=== PATIENT | female | born 1940 | race Caucasian/White ===

== ENCOUNTER 2016-06-01 09:53 | Inpatient (IN) | payer MEDICARE, OTHER ==
[2016-06-01] VITALS (13 sets, daily range): BP systolic 72–159; BP diastolic 40–83; PULSE 56–72; RESP 16; TEMP 99; O2SAT 90–99
[~2016-06-01] VITALS: Ht 162.6 cm; Wt 62.0 kg
[2016-06-01] MEDS: LACTATED RINGER'S 1000 ML INJ 1,000 ML IV SCH
[2016-06-01] MEDS: levETIRAcetam 500 MG TAB PO SCH (00:45)
[2016-06-01] MEDS: PHENYTOIN SODIUM 100 MG CAP PO SCH (00:45)
[2016-06-01] MEDS: ATORVASTATIN 40 MG TAB PO SCH (00:45)
[2016-06-01] MEDS: MIRTAZAPINE 15 MG TAB PO SCH (00:45)
[~2016-06-01 09:53] MED LIST: AMLO10TA2 PO; ARTI1DRO EACH EYE; ATOR40TA16 PO; BISA10SU3 RECTAL; CALTTAB6 PO; CARV3.125 PO; CLON.1 PO; DILA100C PO; FENT12DI T-DERMAL; FERR1TAB36 PO; FLEEENE3 PR; FLEEENE3 RECTAL; HYDR-3801 PO; HYDR25TA5 PO; ISOS30TA15 PO; KEPP750T PO; LEVEMIR SQ; MAALSUS PO; MILKSUS PO; MIRA50TA PO; NOVOLOGP2 SQ; PLAV75TA29 PO; PRIN20TA2 PO; PROC10003 SQ; PROT40TA PO; TACT325T PO
[2016-06-01] MEDS ORDERED: SODIUM CHLOR 0.9% 1000 ML INJ 1,000 ML IV ONE (10:15)
[2016-06-01] MEDS ORDERED: SODIUM CHLORIDE 0.9% FLUSH 5 ML FLUSH IVF PRN ×2 (10:15→23:00)
[2016-06-01 10:45] LABS: BLOOD, URINE NEG (NEG); COMMENT (UR) CULT NOT INDICATED; CULTURE IF INDICATED CULT NOT INDICATED; GLUCOSE,URINE NEG (NEG); KETONE, URINE NEG (NEG); MUCUS URINE FEW /lpf (OCC); NITRITE,URINE NEG (NEG); PH, URINE 5.5 (5.0-8.5); SQUAMOUS EPITHELIAL CELL URINE <1 /hpf (0-5); URINE COLOR YELLOW (YELLW/STRAW)
[2016-06-01 10:47] LABS: AUTOMATED NEUTROPHIL # 7.6 TH/MM3 (1.8-7.7); BASOPHIL % 0.1 % (0.0-2.0); HEMATOCRIT 30.8 % (35.0-46.0); HEMO FLAGS DIFF FINAL; LYMPH % 3.8 % (9.0-44.0); LYMPHOCYTE # 0.3 TH/MM3 (1.0-4.8); MEAN CELL VOLUME 94.5 FL (80.0-100.0); MEAN CORPUSCULAR HEMOGLOBIN 32.5 PG (27.0-34.0); MEAN CORPUSCULAR HGB CONC 34.4 % (32.0-36.0); MONO % 7.3 % (0.0-8.0); NEUT % 88.8 % (16.0-70.0); PLATELET COUNT 215 TH/MM3 (150-450); RED BLOOD COUNT 3.25 MIL/MM3 (4.00-5.30); RED CELL DISTRIBUTION WIDTH 14.5 % (11.6-17.2); WHITE BLOOD COUNT 8.6 TH/MM3 (4.0-11.0)
[2016-06-01 10:53] LABS: APTT (PATIENT) 26.6 SEC (24.3-30.1); PROTHROMBIN TIME - PATIENT 10.7 SEC (9.8-11.6)
[2016-06-01] MEDS ORDERED: PROPOFOL 200 MG/20 ML AMP IV ONE (10:54)
[2016-06-01] MEDS ORDERED: ePHEDrine/NS 50 MG/5 ML SYR IV ONE (10:54)
[2016-06-01] MEDS ORDERED: ONDANSETRON HCL 4 MG/2 ML VIAL IV PUSH ONE (10:54)
--- NOTE | 2016-06-01 10:55 | PD ---
HPI Chief Complaint: Hip Injury Time Seen by Provider: 10:07 Travel History International Travel<30 days: No Contact w/Intl Traveler<30days: No Traveled to known affect area: No History of Present Illness HPI 75-year-old female was sent from the longterm for a fall and left hip injury. They had done an x-ray because she had leg shortening and pain which showed hip fracture. Patient is complaining of left-sided hip pain. She is awake and answering questions appropriately. She is not sure how she fell and is not sure if she hit her head. Patient is on Plavix. Upon arrival her blood pressure was in 80s systolic. She did not appear to be in any severe pain. She did not receive any pain medication en route. [facility] Past Medical History Narrative Medical List of her past medical history is reviewed from the nursing note. Anemia: Yes Arthritis: Yes Asthma: No Autoimmune Disease: No Anxiety: Yes Depression: No Heart Rhythm Problems: No Cancer: No Cardiac Catheterization: Yes Cardiovascular Problems: Yes (HTN) High Cholesterol: No Chemotherapy: No Chest Pain: No Congestive Heart Failure: No COPD: No Cerebrovascular Accident: Yes (patient says a while ago, doesnt remember) Diabetes: Yes Patient Takes Glucophage: No Diminished Hearing: No Endocrine: Yes GERD: No Genitourinary: No Hiatal Hernia: No Hypertension: Yes Immune Disorder: No Kidney Stones: No Musculoskeletal: Yes Neurologic: Yes Psychiatric: Yes Reproductive: No Respiratory: No Immunizations Current: Yes Migraines: No Radiation Therapy: No Renal Failure: No Seizures: Yes Sickle Cell Disease: No Sleep Apnea: No Thyroid Disease: No Ulcer: No Tetanus Vaccination: < 5 Years Influenza Vaccination: Yes Past Surgical History Abdominal Surgery: No AICD: No Arteriovenous Shunt: No Cardiac Surgery: No Ear Surgery: No Endocrine Surgery: No Eye Surgery: No Genitourinary Surgery: No Gynecologic Surgery: No Insulin Pump: No Joint Replacement: No Oral Surgery: No Pacemaker: No Thoracic Surgery: No Tonsillectomy: Yes Social History Alcohol Use: No Tobacco Use: No Substance Use: No Allergies-Medications (Allergen,Severity, Reaction): Coded Allergies: No Known Allergies (Verified , 06/01/16) Comments No known drug allergies. Reported Meds & Prescriptions Reported Meds & Active Scripts Active Reported Mirtazapine 15 Mg Tab 15 Mg PO HS Furosemide 20 Mg Tab 20 Mg PO DAILY Escitalopram (Escitalopram Oxalate) 20 Mg Tab 20 Mg PO DAILY Humalog Inj (Insulin Human Lispro) 1,000 Unit/10 Ml Vial 1-9 Units SQ ACHS Max dose at bedtime:( )units; sugars< 70,(0)units; sugars 150-199,(1)unit; sugars 200-249,(3)units; sugars 250-299,(5)units; sugars 300-349,(7)units; sugars more than 349,(9)units. Fleet Enema Rectal (Sodium Phosphates Rectal) 7-19 Gm/118 Ml Enem 1 Each RECTAL DIRECTED PRN If no results from Dulcolax within 48hrs Bisacodyl Supp (Bisacodyl) 10 Mg Supp 10 Mg RECTAL DAILY PRN If no results from MOM Maalox Max Liq (Gqbpdtuj-Bkjymhgfy-Raupewotzar Liq) 400-400-40 Mg/5 Ml Susp 30 Ml PO Q4HR PRN Take between meals or as directed. Shake well. Maximum 60 ml/24 hrs. Milk of Magnesia Liq (Magnesium Hydroxide) 400 Mg/5 Ml Susp 30 Ml PO Q4HR PRN Fentanyl Patch 72 HR (Fentanyl) 12 Mcg/Hr Patch 1 Patch T-DERMAL Q72H Remove old patch when new one placed. Soothe Xp/Xtra Protection (Artificial Tear Solution) 1 Hansel Hansel 1 Drop EACH EYE TID Procrit Inj (Epoetin Asael) 10,000 Unit/Ml Inj 5,000 Units SQ WEEKLY Hold if HGB over 11. Myrbetriq (Mirabegron) 50 Mg Tab 50 Mg PO HS Plavix (Clopidogrel Bisulfate) 75 Mg Tab 75 Mg PO DAILY Tactinal (Acetaminophen) 325 Mg Tab 650 Mg PO Q4HR PRN Keppra (Levetiracetam) 750 Mg Tab 1,500 Mg PO BID Iron (Ferrous Sulfate) 325 Mg Tab 325 Mg PO TID Dilantin (Phenytoin Extended) 100 Mg Cap 200 Mg PO HS Levemir Inj (Insulin Detemir) 1,000 unit/ 10 ML Vial 8 Units SQ HS Do not mix with any other Insulin. Prinivil (Lisinopril) 20 Mg Tab 40 Mg PO DAILY Isosorbide Dinitrate 30 Mg Tab 60 Mg PO BID Hydrochlorothiazide 25 Mg Tab 25 Mg PO DAILY Hydralazine (Hydralazine HCl) 100 Mg Tab 100 Mg PO TID Take with meals Catapres (Clonidine) 0.1 Mg Tab 0.1 Mg PO BID Coreg (Carvedilol) 3.125 Mg Tab 3.125 Mg PO BID Caltrate 600+D Plus Warrick 600-800 mg-Unit (Calcium Carbonate-Vitamin D W/) 1 Tab Tab 1 Tab PO TID Atorvastatin (Atorvastatin Calcium) 40 Mg Tab 40 Mg PO HS Amlodipine (Amlodipine Besylate) 10 Mg Tab 10 Mg PO DAILY Protonix (Pantoprazole Sodium) 40 Mg Tab 40 Mg PO DAILY Narrative Medication List of her home medications reviewed from the nursing note. 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 HEAD: Atraumatic. Normocephalic. EYES: Pupils equal and round. No scleral icterus. No injection or drainage. ENT: No nasal bleeding or discharge. Mucous membranes pink and moist. NECK: Trachea midline. No JVD. CARDIOVASCULAR: Regular rate and rhythm. No murmur appreciated. RESPIRATORY: No accessory muscle use. Clear to auscultation. Breath sounds equal bilaterally. GASTROINTESTINAL: Abdomen soft, non-tender, nondistended. Hepatic and splenic margins not palpable. MUSCULOSKELETAL: Right leg length shortening and decreased range of motion due to pain. No clubbing. No cyanosis. No edema. Distal neurovascular intact NEUROLOGICAL: Awake and alert. No obvious cranial nerve deficits. Motor grossly within normal limits. Normal speech. PSYCHIATRIC: Appropriate mood and affect; insight and judgment normal. Data Data Last Documented VS Vital Signs Date Time Temp Pulse Resp B/P Pulse Ox O2 Delivery O2 Flow Rate FiO2 06/01/16 12:00 98 Nasal Cannula 3 06/01/16 11:20 68 16 108/52 06/01/16 09:53 99.0 Orders Electrocardiogram (06/01/16 10:08) Complete Blood Count With Diff (06/01/16 10:08) Comprehensive Metabolic Panel (06/01/16 10:08) Prothrombin Time / Inr (Pt) (06/01/16 10:08) Act Partial Throm Time (Ptt) (06/01/16 10:08) Urinalysis - C+S If Indicated (06/01/16 10:08) Type And Screen (06/01/16 10:08) Hip, Uni(Ap&Lat) W Ap Pelvis (06/01/16 10:08) Iv Access Insert/Monitor (06/01/16 10:08) Oximetry (06/01/16 10:08) Ecg Monitoring (06/01/16 10:08) Sodium Chloride 0.9% Flush (Ns Flush) (06/01/16 10:15) Ct Brain W/O Iv Contrast(Rout) (06/01/16 ) Sodium Chlor 0.9% 1000 Ml Inj (Ns 1000 M (06/01/16 10:15) Urinary Catheter Insert/Apply (06/01/16 10:08) Chest, Single Ap (06/01/16 ) Consult Orthopedic (06/01/16 ) NPO (06/01/16 11:45) Admit Order (Ed Use Only) (06/01/16 11:57) Labs Laboratory Tests Test 06/01/16 10:25 White Blood Count 8.6 TH/MM3 Red Blood Count 3.25 MIL/MM3 Hemoglobin 10.6 GM/DL Hematocrit 30.8 % Mean Corpuscular Volume 94.5 FL Mean Corpuscular Hemoglobin 32.5 PG Mean Corpuscular Hemoglobin 34.4 % Concent Red Cell Distribution Width 14.5 % Platelet Count 215 TH/MM3 Mean Platelet Volume 8.6 FL Neutrophils (%) (Auto) 88.8 % Lymphocytes (%) (Auto) 3.8 % Monocytes (%) (Auto) 7.3 % Eosinophils (%) (Auto) 0.0 % Basophils (%) (Auto) 0.1 % Neutrophils # (Auto) 7.6 TH/MM3 Lymphocytes # (Auto) 0.3 TH/MM3 Monocytes # (Auto) 0.6 TH/MM3 Eosinophils # (Auto) 0.0 TH/MM3 Basophils # (Auto) 0.0 TH/MM3 CBC Comment DIFF FINAL Differential Comment Prothrombin Time 10.7 SEC Prothromb Time International 1.0 RATIO Ratio Activated Partial 26.6 SEC Thromboplast Time Urine Color YELLOW Urine Turbidity CLEAR Urine pH 5.5 Urine Specific [place] 1.023 Urine Protein TRACE mg/dL Urine Glucose (UA) NEG mg/dL Urine Ketones NEG mg/dL Urine Occult Blood NEG Urine Nitrite NEG Urine Bilirubin NEG Urine Urobilinogen LESS THAN 2.0 MG/DL Urine Leukocyte Esterase NEG Urine RBC 1 /hpf Urine WBC 1 /hpf Urine Squamous Epithelial <1 /hpf Cells Urine Mucus FEW /lpf Microscopic Urinalysis Comment CULT NOT INDICATED Sodium Level 140 MEQ/L Potassium Level 4.8 MEQ/L Chloride Level 103 MEQ/L Carbon Dioxide Level 30.1 MEQ/L Anion Gap 7 MEQ/L Blood Urea Nitrogen 38 MG/DL Creatinine 1.17 MG/DL Estimat Glomerular Filtration 45 ML/MIN Rate Random Glucose 266 MG/DL Calcium Level 8.4 MG/DL Total Bilirubin 0.3 MG/DL Aspartate Amino Transf 16 U/L (AST/SGOT) Alanine Aminotransferase 22 U/L (ALT/SGPT) Alkaline Phosphatase 106 U/L Total Protein 5.8 GM/DL Albumin 3.4 GM/DL Blood Type A POSITIVE Antibody Screen NEGATIVE MDM Medical Decision Making Medical Screen Exam Complete: Yes Emergency Medical Condition: Yes Medical Record Reviewed: Yes Interpretation(s) Twelve-lead EKG was reviewed by me. Normal sinus rhythm, normal axis, LVH, left ventricular strain. Heart rate of 68 bpm. Differential Diagnosis Hip fracture, proximal femur fracture Narrative Course 10:54 AM awaiting for the x-ray to be done and resulted. I've ordered a head CT since patient is on Plavix and does not recall if she hit her head when she fell. Awaiting for the chemistry to come back. Patient will require admission. 11:41 AM x-ray is back and cleared shows a comminuted proximal femur fracture. I put a call out for orthopedics as well as the hospitalist for admission. 11:47 AM I spoke with Dr. Dr. Oneill from orthopedics. Patient is nothing by mouth as per his request. Awaiting for the hospitalist to call back. Procedures EKG Prior to Arrival: No Physician Communication Physician Communication Dr. Oneill Diagnosis Primary Impression: Intertrochanteric fracture of left hip Qualified Code: S72.142A - Intertrochanteric fracture of left hip, closed, initial encounter Additional Impression: Hyperglycemia Admitting Information Admitting Physician Requests: Admit Nichelle Nichols MD Jun 01, 2016 10:55
[2016-06-01 10:59] LABS: ALT (GPT) 22 U/L (10-53); ANION GAP 7 MEQ/L (5-15); AST (GOT) 16 U/L (15-37); BICARBONATE 30.1 MEQ/L (21.0-32.0); BLOOD UREA NITROGEN 38 MG/DL (7-18); CHLORIDE 103 MEQ/L (98-107); GLOMERULAR FILTRATION RATE 45 ML/MIN (>89); POTASSIUM 4.8 MEQ/L (3.5-5.1); SODIUM (NA) 140 MEQ/L (136-145)
[2016-06-01 11:01] LABS: ALKALINE PHOSPHATASE 106 U/L (45-117); TOTAL BILIRUBIN ADULT 0.3 MG/DL (0.2-1.0)
--- NOTE | 2016-06-01 11:39 | RADRPT ---
EXAM DATE/TIME: 06/01/2016 11:11 [facility] COMPARISON: No previous studies available for comparison. INDICATIONS : Left hip pain after fall yesterday. MEDICAL HISTORY : Stroke. Seizures. Myocardial infarction. Diabetes. SURGICAL HISTORY : Carotid endarterectomy. Cardiac catheterization ENCOUNTER: Initial ACUITY: 2 days PAIN SCORE: 7/10 LOCATION: Left Hip. FINDINGS: Examination of the left hip was performed with AP Pelvis. Comminuted intratrochanteric fracture of th e left hip in varus angulation. Osseous structures are otherwise intact. Femoral acetabular articulat ion is preserved. Atherosclerotic calcification of the regional vasculature. CONCLUSION: Comminuted intratrochanteric fracture of the left hip. Gary Salamanca MD on June 01, 2016 at 11:35 Board Certified Radiologist. This report was verified electronically.
--- NOTE | 2016-06-01 11:40 | RADRPT ---
EXAM DATE/TIME: 06/01/2016 11:27 [facility] COMPARISON: CHEST SINGLE AP, May 31, 2015, 14:08. INDICATIONS : Cough. MEDICAL HISTORY : Stroke. Seizures. Myocardial infarction. Diabetes SURGICAL HISTORY : Carotid endarterectomy. Cardiac catheterization ENCOUNTER: Initial ACUITY: 2 days PAIN SCORE: 0/10 LOCATION: Bilateral chest FINDINGS: A single view of the chest demonstrates the lungs to be symmetrically aerated without evidence of mas s, infiltrate or effusion. The cardiomediastinal contours are unremarkable. 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 Degenerative spurring the dorsal spine. Otherwise intact. CONCLUSION: 1. No acute cardiopulmonary process to explain current clinical symptoms. 2. Severe degenerative changes in both shoulders with degenerative spurring in the mid dorsal spine. Gary Salamanca MD on June 01, 2016 at 11:38 Board Certified Radiologist. This report was verified electronically.
[2016-06-01] MEDS ORDERED: HUMALOG SQ (11:53)
[2016-06-01] MEDS ORDERED: ESCI20TA PO (11:55)
[2016-06-01] MEDS ORDERED: FURO20TA PO (11:55)
[2016-06-01] MEDS ORDERED: MIRTA15 PO (11:55)
[2016-06-01] MEDS ORDERED: MAGNESIUM HYDROXIDE SUSP 30 ML CUP PO PRN (13:00)
[2016-06-01] MEDS ORDERED: BISACODYL 10 MG SUPP RECTAL PRN (13:00)
[2016-06-01] MEDS ORDERED: GLUCAGON 1 MG/ML VIAL OTHER PRN (13:00)
[2016-06-01] MEDS ORDERED: ALUMINUM/MAGNESIUM/SIMETH 30 ML CUP PO PRN ×2 (13:00→23:00)
[2016-06-01] MEDS ORDERED: DEXT 5%-NACL 0.45% 1000 ML INJ 1,000 ML IV SCH (13:00)
[2016-06-01] MEDS ORDERED: ARTIFICIAL TEARS OPTH SOLN 15 ML BTL EACH EYE SCH (13:00)
[2016-06-01] MEDS ORDERED: DEXTROSE 50% IN WATER 50 ML VIAL(D50) IV PUSH PRN (13:00)
[2016-06-01] MEDS ORDERED: MORPHINE SULFATE 4 MG/ML INJ IV PUSH PRN ×2 (14:15→23:45)
--- NOTE | 2016-06-01 15:34 | HHI.HP ---
HPI Service [facility] Primary Care Physician Jacob Smith Admission Diagnosis hip fracture, hyperglycemia Diagnoses: Chief Complaint: left leg pain (Tracie Parnell) Travel History International Travel<30 Days: No Contact w/Intl Traveler <30 Da: No Traveled to Known Affected Are: No (Tracie Parnell) History of Present Illness This is a pleasant 75-year-old female patient with a past medical history which includes carotid stenosis, diabetes mellitus insulin-dependent, hypertension CVA 2012, seizure, anxiety, CAD with VT, hyperlipidemia, compression fracture of L3, duodenal AVM, GRAHAM, GIB due to AVM. Was last admitted 02/2016 for severe anemia secondary to GIB, had EGD and clipping of AVMs. Pt. was sent from a local intermediate after she had a fall and had a left hip injury. It is not clear as to the mechanics of the fall, patient does not recall falling, she is a poor historian. Per ER report, an x-ray was completed at the facility as they noted left leg shortening and pain. X-ray showed hip fracture. Patient was brought to the hospital for further evaluation. On initial presentation, patient was noted with blood pressure of 80 systolic, there was no reported fever, no chest pain, shortness of breath. She had not received any pain medication per EMS. Patient is on Coreg, clonidine, hydralazine, hydrochlorothiazide, lisinopril. Laboratory workup completed was essentially unremarkable, H&H was stable, hemoglobin of 10.6 hematocrit 30.8. BMP remarkable for mild renal insufficiency, creatinine 1.17. Glucose was elevated , 266. UA completed without any evidence of infection. Chest x-ray did not show any infiltrates. CT of the head was negative. Hip and pelvis x-ray showed comminuted intertrochanteric fracture left hip. Last Impressions Hip and Pelvis X-Ray 06/01/16 1008 Signed Impressions: Service Date/Time: Wednesday, June 01, 2016 11:11 - CONCLUSION: Comminuted intratrochanteric fracture of the left hip. Gary Salamanca MD Chest X-Ray 06/01/16 0000 Signed Impressions: Service Date/Time: Wednesday, June 01, 2016 11:27 - CONCLUSION: 1. No acute cardiopulmonary process to explain current clinical symptoms. 2. Severe degenerative changes in both shoulders with degenerative spurring in the mid dorsal spine. MD Dr. Mai Marie was consulted from the emergency room, he requested patient be kept nothing by mouth. Patient received 1 L of IV fluid. Most recent blood pressure is 141/83, heart rate 57. Patient has no complaints, wants to use the bedpan. Pain only with movement of left leg. Patient is admitted for further evaluation and treatment. (Tracie Parnell) Review of Systems ROS Limitations: Poor Historian Musculoskeletal: COMPLAINS OF: Joint pain (Tracie Parnell) Past Family Social History Past Medical History Carotid stenosis, diabetes mellitus insulin-dependent, hypertension CVA 2012, seizure, anxiety, CAD with VT, hyperlipidemia, compression fracture of L3, duodenal AVM, anemia Admitted with GIB, anemia, AVM, had IV Venofer and PRBCC, had EGD Recent capsule endoscopy admitted 02/2016 with severe anemia, GIB, had EGD with AVM clipping Past Surgical History EGD/colonoscopy, right carotid endarterectomy, right femoral artery surgery, cataract surgery, repair of duodenal AVM EGD with AVM cautery duodenum 06/02/2015 EGD with AVM clipping 02/2016 Reported Medications Reported Meds & Active Scripts Active Reported Mirtazapine 15 Mg Tab 15 Mg PO HS Furosemide 20 Mg Tab 20 Mg PO DAILY Escitalopram (Escitalopram Oxalate) 20 Mg Tab 20 Mg PO DAILY Humalog Inj (Insulin Human Lispro) 1,000 Unit/10 Ml Vial 1-9 Units SQ ACHS Max dose at bedtime:( )units; sugars< 70,(0)units; sugars 150-199,(1)unit; sugars 200-249,(3)units; sugars 250-299,(5)units; sugars 300-349,(7)units; sugars more than 349,(9)units. Fleet Enema Rectal (Sodium Phosphates Rectal) 7-19 Gm/118 Ml Enem 1 Each RECTAL DIRECTED PRN If no results from Dulcolax within 48hrs Bisacodyl Supp (Bisacodyl) 10 Mg Supp 10 Mg RECTAL DAILY PRN If no results from MOM Maalox Max Liq (Dgfuqqfa-Dttufqnju-Xgdokwmfkmt Liq) 400-400-40 Mg/5 Ml Susp 30 Ml PO Q4HR PRN Take between meals or as directed. Shake well. Maximum 60 ml/24 hrs. Milk of Magnesia Liq (Magnesium Hydroxide) 400 Mg/5 Ml Susp 30 Ml PO Q4HR PRN Fentanyl Patch 72 HR (Fentanyl) 12 Mcg/Hr Patch 1 Patch T-DERMAL Q72H Remove old patch when new one placed. Soothe Xp/Xtra Protection (Artificial Tear Solution) 1 Hansel Hansel 1 Drop EACH EYE TID Procrit Inj (Epoetin Asael) 10,000 Unit/Ml Inj 5,000 Units SQ WEEKLY Hold if HGB over 11. Myrbetriq (Mirabegron) 50 Mg Tab 50 Mg PO HS Plavix (Clopidogrel Bisulfate) 75 Mg Tab 75 Mg PO DAILY Tactinal (Acetaminophen) 325 Mg Tab 650 Mg PO Q4HR PRN Keppra (Levetiracetam) 750 Mg Tab 1,500 Mg PO BID Iron (Ferrous Sulfate) 325 Mg Tab 325 Mg PO TID Dilantin (Phenytoin Extended) 100 Mg Cap 200 Mg PO HS Levemir Inj (Insulin Detemir) 1,000 unit/ 10 ML Vial 8 Units SQ HS Do not mix with any other Insulin. Prinivil (Lisinopril) 20 Mg Tab 40 Mg PO DAILY Isosorbide Dinitrate 30 Mg Tab 60 Mg PO BID Hydrochlorothiazide 25 Mg Tab 25 Mg PO DAILY Hydralazine (Hydralazine HCl) 100 Mg Tab 100 Mg PO TID Take with meals Catapres (Clonidine) 0.1 Mg Tab 0.1 Mg PO BID Coreg (Carvedilol) 3.125 Mg Tab 3.125 Mg PO BID Caltrate 600+D Plus Milk Vendor 600-800 mg-Unit (Calcium Carbonate-Vitamin D W/) 1 Tab Tab 1 Tab PO TID Atorvastatin (Atorvastatin Calcium) 40 Mg Tab 40 Mg PO HS Amlodipine (Amlodipine Besylate) 10 Mg Tab 10 Mg PO DAILY Protonix (Pantoprazole Sodium) 40 Mg Tab 40 Mg PO DAILY (Tracie Parnell) Allergies: Coded Allergies: No Known Allergies (Verified , 06/01/16) Active Ordered Medications Inpatient Medications Al Hydrox/Mg Hydrox/Simethicone (Mag-Al Plus Susp Liq) 30 ml Q4HR PRN PO INDIGESTION OR UPSET STOMACH; Start 06/01/16 at 13:00 Artificial Tears (Tears Naturale Opth Soln) 1 drop TID EACH EYE DRYEYE; Start at 18:00 Atorvastatin Calcium (Lipitor) 40 mg HS PO ; Start 06/01/16 at 21:00 Bisacodyl (Dulcolax Supp) 10 mg DAILY PRN RECTAL CONSTIPATION; Start 06/01/16 at 13:00 Carvedilol (Coreg) 3.125 mg BID PO ; Start 06/01/16 at 21:00 Dextrose (D50w (Vial) Inj) 25 ml UNSCH PRN IV PUSH HYPOGLYCEMIA-SEE COMMENTS; Start 06/01/16 at 13:00 Dextrose/Sodium Chloride (D5W-1/2 NS 1000 ml Inj) 1,000 ml @ 100 mls/hr Q10H IV Last administered on 06/01/16t 13:55; Start 06/01/16 at 13:00 Escitalopram Oxalate (Lexapro) 20 mg DAILY PO ; Start 06/02/16 at 09:00 Glucagon (Glucagon Inj) 1 mg UNSCH PRN OTHER HYPOGLYCEMIA-SEE COMMENTS; Start 06/01/16 at 13:00 Insulin Aspart (NovoLOG SUPPLEMENTAL SCALE) 1 ACHS SLIDING SCALE SQ ; Start at 16:00 IV Flush 2 ml 2 ml UNSCH PRN IVF FLUSH AFTER USING IV ACCESS; Start 06/01/16 at 10:15 Levetriacetam (Keppra) 1,500 mg BID PO ; Start 06/01/16 at 21:00 Magnesium Hydroxide (Milk Of Magnesia Liq) 30 ml Q4HR PRN PO CONSTIPATION; Start 06/01/16 at 13:00 Mirtazapine (Remeron) 15 mg HS PO ; Start 06/01/16 at 21:00 Morphine Sulfate (Morphine Inj) 2 mg Q3H PRN IV PUSH pain 5 to 10; Start at 14:15; Status UNV Non-Formulary Medication 60 mg DAILY PO ; Start 06/02/16 at 09:00; Status UNV Non-Formulary Medication 50 mg 50 mg HS PO ; Start 06/01/16 at 21:00; Status UNV Pantoprazole Sodium (Protonix) 40 mg DAILY PO ; Start 06/02/16 at 09:00 Phenytoin (Dilantin) 200 mg HS PO ; Start 06/01/16 at 21:00 Sodium Chloride (NS 1000 ml Inj) 1,000 ml @ 999 mls/hr BOLUS ONCE IV Last administered on 06/01/16t 10:23; Start 06/01/16 at 10:15; Stop 06/01/16 at 11:15 ; Status DC Family History Believes father of a heart attack at unknown age Mother of a CVA unknown age Social History Patient is a resident [facility] Her former boss is her close friend and POA Denies EtOH use Quit tobacco use proximally 7 years ago prior to that was a one pack-a-day smoker since she was a teenager Denies illicit drug use (Tracie Parnell) Physical Exam Vital Signs Vital Signs Date Time Temp Pulse Resp B/P Pulse Ox O2 Delivery O2 Flow Rate FiO2 06/01/16 15:00 57 16 141/83 97 Nasal Cannula 3 06/01/16 14:00 58 16 102/51 97 Nasal Cannula 3 06/01/16 13:40 60 16 88/51 99 Nasal Cannula 3 06/01/16 13:00 56 16 111/52 97 Nasal Cannula 3 06/01/16 12:20 59 16 90/40 98 Nasal Cannula 3 06/01/16 12:09 64 16 76/40 98 Nasal Cannula 3 06/01/16 12:00 98 Nasal Cannula 3 06/01/16 11:20 68 16 108/52 97 Nasal Cannula 4 06/01/16 10:10 67 16 119/58 96 Nasal Cannula 4 06/01/16 10:00 72 16 72/40 96 Nasal Cannula 4 06/01/16 10:00 63 16 96 Nasal Cannula 4 06/01/16 09:55 99 Nasal Cannula 4 06/01/16 09:53 99.0 66 16 88/53 90 Physical Exam GENERAL: This is a well-nourished, well-developed patient, in no apparent distress. SKIN: No rashes, ecchymoses or lesions. Cool and dry. HEAD: Atraumatic. Normocephalic. No temporal or scalp tenderness. EYES: Pupils equal round and reactive. Extraocular motions intact. No scleral icterus. No injection or drainage. ENT: Nose without bleeding, purulent drainage or septal hematoma. Throat without erythema, tonsillar hypertrophy or exudate. Uvula midline. Airway patent. NECK: Trachea midline. No JVD or lymphadenopathy. Supple, nontender, no meningeal signs. CARDIOVASCULAR: Regular rate and rhythm without murmurs, gallops, or rubs. RESPIRATORY: Mild expiratory wheezing Slightly diminished at bases. GASTROINTESTINAL: Abdomen soft, non-tender, nondistended. No hepato-splenomegaly , or palpable masses. No guarding. MUSCULOSKELETAL: Left lower extremity noted with shortening, slightly rotated externally, swelling and tenderness to upper thigh. Intact sensation, left pedal pulse 2+. Other joints without any abnormalities. NEUROLOGICAL: awake, oriented x 2, poor historian. No focal deficits, following commands. Laboratory Laboratory Tests Test 06/01/16 10:25 White Blood Count 8.6 Red Blood Count 3.25 Hemoglobin 10.6 Hematocrit 30.8 Mean Corpuscular Volume 94.5 Mean Corpuscular Hemoglobin 32.5 Mean Corpuscular Hemoglobin 34.4 Concent Red Cell Distribution Width 14.5 Platelet Count 215 Mean Platelet Volume 8.6 Neutrophils (%) (Auto) 88.8 Lymphocytes (%) (Auto) 3.8 Monocytes (%) (Auto) 7.3 Eosinophils (%) (Auto) 0.0 Basophils (%) (Auto) 0.1 Neutrophils # (Auto) 7.6 Lymphocytes # (Auto) 0.3 Monocytes # (Auto) 0.6 Eosinophils # (Auto) 0.0 Basophils # (Auto) 0.0 CBC Comment DIFF FINAL Differential Comment Prothrombin Time 10.7 Prothromb Time International 1.0 Ratio Activated Partial 26.6 Thromboplast Time Urine Color YELLOW Urine Turbidity CLEAR Urine pH 5.5 Urine Specific Collyer 1.023 Urine Protein TRACE Urine Glucose (UA) NEG Urine Ketones NEG Urine Occult Blood NEG Urine Nitrite NEG Urine Bilirubin NEG Urine Urobilinogen LESS THAN 2.0 Urine Leukocyte Esterase NEG Urine RBC 1 Urine WBC 1 Urine Squamous Epithelial <1 Cells Urine Mucus FEW Microscopic Urinalysis Comment CULT NOT INDICATED Sodium Level 140 Potassium Level 4.8 Chloride Level 103 Carbon Dioxide Level 30.1 Anion Gap 7 Blood Urea Nitrogen 38 Creatinine 1.17 Estimat Glomerular Filtration 45 Rate Random Glucose 266 Calcium Level 8.4 Total Bilirubin 0.3 Aspartate Amino Transf 16 (AST/SGOT) Alanine Aminotransferase 22 (ALT/SGPT) Alkaline Phosphatase 106 Total Protein 5.8 Albumin 3.4 Blood Type A POSITIVE Antibody Screen NEGATIVE (Tracie Parnell) Result Diagram: 06/01/16 1025 06/01/16 1025 Imaging Last Impressions Hip and Pelvis X-Ray 06/01/16 1008 Signed Impressions: Service Date/Time: Wednesday, June 01, 2016 11:11 - CONCLUSION: Comminuted intratrochanteric fracture of the left hip. Gary Salamanca MD Chest X-Ray 06/01/16 0000 Signed Impressions: Service Date/Time: Wednesday, June 01, 2016 11:27 - CONCLUSION: 1. No acute cardiopulmonary process to explain current clinical symptoms. 2. Severe degenerative changes in both shoulders with degenerative spurring in the mid dorsal spine. Gary Salamanca MD (Tracie ParnellP) Assessment and Plan Problem List: (1) Intertrochanteric fracture of left hip (2) Hypotension (3) Hyperglycemia (4) Hx of iron deficiency (5) Seizure (6) Diabetes (7) CAD (coronary artery disease) (8) Hx of arteriovenous malformation (AVM) (9) Osteoporosis (10) COPD (chronic obstructive pulmonary disease) Assessment and Plan Admit pt. to Dr. Johnson 75-year-old elderly female admitted from intermediate, had recent fall, brought to the emergency room and was found with common noted proximal left femur fracture. History of osteoporosis. -Orthopedic consultation, Dr. Oneill has been notified -Keep pt. NPO, will be going for surgery today -Pain management -IVF Hypotension, etiology unclear, doesn't appear septic, on multiple medications for blood pressure -IVF 1 liter has been given, keep NS at 75/hr -Monitor BP closely -Hold BP meds for now Anemia, stable H&H. Hx GIB sec. AVM, GRAHAM -monitor HH -Resume by mouth iron COPD, stable -Duonebs PRN DM, II -Accu-Cheks before meals and at bedtime with insulin therapy as needed CAD Continue with home medications Seizure disorder -Seizure precautions -Continue Keppra Home medications reviewed, some initiated as indicated SCDs for DVT prophylaxis Protonix for GI prophylaxis Plan of care has been discussed with the patient, attending and registered nurse. Further management of the patient will be dependent on the hospital course Laboratory data and imaging studies have been reviewed, patient is stable to proceed with surgery. Patient will be monitored closely, she has multiple comorbidities and is at moderate risk for complications. Patient requires inpatient admission for anticipated stay greater than 2 days for left femur fracture. If patient not admitted, she is at risk for complications due to advanced age and comorbidities. Patient at risk for disability, pressure areas, infection. Patient requires admission for surgical repair of left femur fracture, IV narcotics, IV fluids. Anticipated discharge back to intermediate with physical therapy when stable This patient was seen by myself and Dr. Johnson, this H&P is written on his behalf (Tracie Parnell) Assessment and Plan PT is seen & Examined d/w PT & her POA at bedside d/w Tracie mims w above Ortho consult awaited d/w RN will f/u (Tabby Johnson MD) Physician Certification 2 Midnight Certification Type: Admission for Inpatient Services Order for Inpatient Services The services are ordered in accordance with Medicare regulations or non- Medicare payer requirements, as applicable. In the case of services not specified as inpatient-only, they are appropriately provided as inpatient services in accordance with the 2-midnight benchmark. Estimated LOS (days): 2 2 days is the estimated time the patient will need to remain in the hospital, assuming treatment plan goals are met and no additional complications. Post-Hospital Plan: SNF (Tracie Parnell) Problem Qualifiers (1) Intertrochanteric fracture of left hip: Qualified Code: S72.142A - Intertrochanteric fracture of left hip, closed, initial encounter (2) Hypotension: Qualified Code: I95.9 - Hypotension, unspecified hypotension type (3) Diabetes: Qualified Code: E11.8 - Type 2 diabetes mellitus with complication, unspecified detention insulin use status (4) CAD (coronary artery disease): Qualified Code: I25.10 - Coronary artery disease involving [place] coronary artery of [place] heart without angina pectoris (5) COPD (chronic obstructive pulmonary disease): Qualified Code: J44.9 - Chronic obstructive pulmonary disease, unspecified COPD type Tracie Parnell Jun 01, 2016 15:34 Tabby Johnson MD Jun 01, 2016 17:43
--- NOTE | 2016-06-01 15:46 | RADRPT ---
EXAM DATE/TIME: 06/01/2016 14:44 [facility] COMPARISON: CT BRAIN W/O CONTRAST, February 15, 2014, 4:39. INDICATIONS : Fall last night RADIATION DOSE: 44.56 CTDIvol (mGy) MEDICAL HISTORY : Hypertension. Diabetes mellitus type 2. Myocardial infarction. SURGICAL HISTORY : None. ENCOUNTER: Initial ACUITY: 1 day PAIN SCALE: 3/10 LOCATION: cranial TECHNIQUE: Multiple contiguous axial images were obtained of the head. Using automated exposure control and adjustment of the mA and/or kV according to patient size, radiation dose was kept as low as reasonably achievable to obtain optimal diagnostic quality images. FINDINGS: CEREBRUM: The ventricles are normal for age. No evidence of midline shift, mass lesion, hemorrha ge or acute infarction. No extra-axial fluid collections are seen. POSTERIOR FOSSA: The cerebellum and brainstem are intact. The 4th ventricle is midline. The cer ebellopontine angle is unremarkable. EXTRACRANIAL: The visualized portion of the orbits is intact. SKULL: The calvaria is intact. No evidence of skull fracture. CONCLUSION: No evidence of acute infarct, hemorrhage, mass or edema. Intact calvarium. Tony Ren MD on June 01, 2016 at 15:43 Board Certified Radiologist. This report was verified electronically.
[2016-06-01] MEDS: INSULIN ASPART SUPPLEMENTAL SCALE SQ SCH ×2 (16:00→21:00)
[2016-06-01] MEDS ORDERED: RESP: ALBUTEROL 2.5 MG/IPRATROPIUM 0.5 MG NEB (PRN) NEB (16:15)
[2016-06-01] MEDS: ARTIFICIAL TEARS OPTH SOLN 15 ML BTL EACH EYE SCH (18:00)
[2016-06-01] MEDS ORDERED: ceFAZolin 2 GM PREMIX 50 ML IV SCH (19:15)
--- NOTE | 2016-06-01 19:30 | PD.CONS ---
cc: Jeanmarie Oneill MD Left intertrochanteric proximal femur fracture (Cristina Saez) HPI Service Orthopedic Surgeons Consult Requested By ER Staff Reason for Consult Left Intertrochanteric Proximal Femur Fracture Primary Care Physician Unknown Admission Diagnosis hip fracture, hyperglycemia Diagnoses: (1) Intertrochanteric fracture of left femur Diagnosis: Principal (2) Hip fracture (3) Hx of iron deficiency (4) Diabetes (5) COPD (chronic obstructive pulmonary disease) (6) Osteoporosis (7) History of CVA (cerebrovascular accident) (8) Upper GI bleed Chief Complaint: left hip fracture secondary to fall (Cristina Saez) History of Present Illness 75 year old female presented to [facility] today after falling in the group home. She is accompanied by her Power of Water Carter, a long time friend. She admitted to immediate left hip pain after the fall. POA admits to Plavix use, which brings up a history of a questionable GI bleed, history of anemia. Previous to this injury she was wheelchair bound at most times, required walker for transfers. (Cristina Saez) Review of Systems well outlined in medical record (Cristina Saez) Past Family Social History Past Medical History well outlined in medical record, admits to possible GI bleed, history of stroke (Cristina Saez) Allergies: Coded Allergies: No Known Allergies (Verified , 06/01/16) Active Ordered Medications Current Medications Medications (Trade) Dose Ordered Sig/Alessio Route Start Time Stop Time Status Last Admin (NS Flush) 2 ml UNSCH PRN IVF 06/01/16 10:15 (Mag-Al Plus Susp Liq) 30 ml Q4HR PRN PO 06/01/16 13:00 (Lipitor) 40 mg HS PO 06/01/16 21:00 (Dulcolax Supp) 10 mg DAILY PRN RECTAL 06/01/16 13:00 (Coreg) 3.125 mg BID PO 06/01/16 21:00 (Lexapro) 20 mg DAILY PO 06/02/16 09:00 (Keppra) 1,500 mg BID PO 06/01/16 21:00 (Milk Of Magnesia Liq) 30 ml Q4HR PRN PO 06/01/16 13:00 (Remeron) 15 mg HS PO 06/01/16 21:00 (Protonix) 40 mg DAILY PO 06/02/16 09:00 (Dilantin) 200 mg HS PO 06/01/16 21:00 Patient Own Medication PT OWN MED:MYRBETRIQ 50MG PO HS HS PO 06/01/16 21:00 Future Hold (D5W-1/2 NS 1000 ml Inj) 1,000 ml @ 100 mls/hr Q10H IV 06/01/16 13:00 06/01/16 13:55 (D50w (Vial) Inj) 25 ml UNSCH PRN IV PUSH 06/01/16 13:00 (Glucagon Inj) 1 mg UNSCH PRN OTHER 06/01/16 13:00 (Tears Naturale Opth Soln) 1 drop TID EACH EYE 06/01/16 18:00 (Morphine Inj) 2 mg Q3H PRN IV PUSH 06/01/16 14:15 Reported Meds & Active Scripts Active Reported Mirtazapine 15 Mg Tab 15 Mg PO HS Furosemide 20 Mg Tab 20 Mg PO DAILY Escitalopram (Escitalopram Oxalate) 20 Mg Tab 20 Mg PO DAILY Humalog Inj (Insulin Human Lispro) 1,000 Unit/10 Ml Vial 1-9 Units SQ ACHS Max dose at bedtime:( )units; sugars< 70,(0)units; sugars 150-199,(1)unit; sugars 200-249,(3)units; sugars 250-299,(5)units; sugars 300-349,(7)units; sugars more than 349,(9)units. Fleet Enema Rectal (Sodium Phosphates Rectal) 7-19 Gm/118 Ml Enem 1 Each RECTAL DIRECTED PRN If no results from Dulcolax within 48hrs Bisacodyl Supp (Bisacodyl) 10 Mg Supp 10 Mg RECTAL DAILY PRN If no results from MOM Maalox Max Liq (Rrhfocrp-Xrgchnfoe-Zmrvwxgxwrf Liq) 400-400-40 Mg/5 Ml Susp 30 Ml PO Q4HR PRN Take between meals or as directed. Shake well. Maximum 60 ml/24 hrs. Milk of Magnesia Liq (Magnesium Hydroxide) 400 Mg/5 Ml Susp 30 Ml PO Q4HR PRN Fentanyl Patch 72 HR (Fentanyl) 12 Mcg/Hr Patch 1 Patch T-DERMAL Q72H Remove old patch when new one placed. Soothe Xp/Xtra Protection (Artificial Tear Solution) 1 Hansel Hansel 1 Drop EACH EYE TID Procrit Inj (Epoetin Asael) 10,000 Unit/Ml Inj 5,000 Units SQ WEEKLY Hold if HGB over 11. Myrbetriq (Mirabegron) 50 Mg Tab 50 Mg PO HS Plavix (Clopidogrel Bisulfate) 75 Mg Tab 75 Mg PO DAILY Tactinal (Acetaminophen) 325 Mg Tab 650 Mg PO Q4HR PRN Keppra (Levetiracetam) 750 Mg Tab 1,500 Mg PO BID Iron (Ferrous Sulfate) 325 Mg Tab 325 Mg PO TID Dilantin (Phenytoin Extended) 100 Mg Cap 200 Mg PO HS Levemir Inj (Insulin Detemir) 1,000 unit/ 10 ML Vial 8 Units SQ HS Do not mix with any other Insulin. Prinivil (Lisinopril) 20 Mg Tab 40 Mg PO DAILY Isosorbide Dinitrate 30 Mg Tab 60 Mg PO BID Hydrochlorothiazide 25 Mg Tab 25 Mg PO DAILY Hydralazine (Hydralazine HCl) 100 Mg Tab 100 Mg PO TID Take with meals Catapres (Clonidine) 0.1 Mg Tab 0.1 Mg PO BID Coreg (Carvedilol) 3.125 Mg Tab 3.125 Mg PO BID Caltrate 600+D Plus Biola 600-800 mg-Unit (Calcium Carbonate-Vitamin D W/) 1 Tab Tab 1 Tab PO TID Atorvastatin (Atorvastatin Calcium) 40 Mg Tab 40 Mg PO HS Amlodipine (Amlodipine Besylate) 10 Mg Tab 10 Mg PO DAILY Protonix (Pantoprazole Sodium) 40 Mg Tab 40 Mg PO DAILY Family History noncontributory Social History Lives in group home. Denies alcohol, drug use or smoking (Cristina Saez) Physical Exam Vital Signs Vital Signs Date Time Temp Pulse Resp B/P Pulse Ox O2 Delivery O2 Flow Rate FiO2 06/01/16 18:30 58 16 159/70 98 Nasal Cannula 3 06/01/16 16:30 56 16 146/65 97 Nasal Cannula 3 06/01/16 15:00 57 16 141/83 97 Nasal Cannula 3 06/01/16 14:00 58 16 102/51 97 Nasal Cannula 3 06/01/16 13:40 60 16 88/51 99 Nasal Cannula 3 06/01/16 13:00 56 16 111/52 97 Nasal Cannula 3 06/01/16 12:20 59 16 90/40 98 Nasal Cannula 3 06/01/16 12:09 64 16 76/40 98 Nasal Cannula 3 06/01/16 12:00 98 Nasal Cannula 3 06/01/16 11:20 68 16 108/52 97 Nasal Cannula 4 06/01/16 10:10 67 16 119/58 96 Nasal Cannula 4 06/01/16 10:00 72 16 72/40 96 Nasal Cannula 4 06/01/16 10:00 63 16 96 Nasal Cannula 4 06/01/16 09:55 99 Nasal Cannula 4 06/01/16 09:53 99.0 66 16 88/53 90 Physical Exam Left lower extremity externally rotated and shortened. Tender to palpation over left hip, particularly anterior region. 2+ pedal pulses. Good cap refill. Neurovascular intact. Full motion of knee and ankle. Laboratory Laboratory Tests Test 06/01/16 10:25 White Blood Count 8.6 Red Blood Count 3.25 Hemoglobin 10.6 Hematocrit 30.8 Mean Corpuscular Volume 94.5 Mean Corpuscular Hemoglobin 32.5 Mean Corpuscular Hemoglobin 34.4 Concent Red Cell Distribution Width 14.5 Platelet Count 215 Mean Platelet Volume 8.6 Neutrophils (%) (Auto) 88.8 Lymphocytes (%) (Auto) 3.8 Monocytes (%) (Auto) 7.3 Eosinophils (%) (Auto) 0.0 Basophils (%) (Auto) 0.1 Neutrophils # (Auto) 7.6 Lymphocytes # (Auto) 0.3 Monocytes # (Auto) 0.6 Eosinophils # (Auto) 0.0 Basophils # (Auto) 0.0 CBC Comment DIFF FINAL Differential Comment Prothrombin Time 10.7 Prothromb Time International 1.0 Ratio Activated Partial 26.6 Thromboplast Time Urine Color YELLOW Urine Turbidity CLEAR Urine pH 5.5 Urine Specific Kincaid 1.023 Urine Protein TRACE Urine Glucose (UA) NEG Urine Ketones NEG Urine Occult Blood NEG Urine Nitrite NEG Urine Bilirubin NEG Urine Urobilinogen LESS THAN 2.0 Urine Leukocyte Esterase NEG Urine RBC 1 Urine WBC 1 Urine Squamous Epithelial <1 Cells Urine Mucus FEW Microscopic Urinalysis Comment CULT NOT INDICATED Sodium Level 140 Potassium Level 4.8 Chloride Level 103 Carbon Dioxide Level 30.1 Anion Gap 7 Blood Urea Nitrogen 38 Creatinine 1.17 Estimat Glomerular Filtration 45 Rate Random Glucose 266 Calcium Level 8.4 Total Bilirubin 0.3 Aspartate Amino Transf 16 (AST/SGOT) Alanine Aminotransferase 22 (ALT/SGPT) Alkaline Phosphatase 106 Total Protein 5.8 Albumin 3.4 Blood Type A POSITIVE Antibody Screen NEGATIVE (Cristina Saez) Result Diagram: 06/01/16 1025 06/01/16 1025 Imaging Last 48 hours Impressions Hip and Pelvis X-Ray 06/01/16 1008 Signed Impressions: Service Date/Time: Wednesday, June 01, 2016 11:11 - CONCLUSION: Comminuted intratrochanteric fracture of the left hip. Gary Salamanca MD Head CT 06/01/16 0000 Signed Impressions: Service Date/Time: Wednesday, June 01, 2016 14:44 - CONCLUSION: No evidence of acute infarct, hemorrhage, mass or edema. Intact calvarium. Tony Ren MD Chest X-Ray 06/01/16 0000 Signed Impressions: Service Date/Time: Wednesday, June 01, 2016 11:27 - CONCLUSION: 1. No acute cardiopulmonary process to explain current clinical symptoms. 2. Severe degenerative changes in both shoulders with degenerative spurring in the mid dorsal spine. Gary Salamanca MD Course well outlined medical record (Cristina Saez) Assessment & Plan Problem List: (1) Intertrochanteric fracture of left hip (2) COPD (chronic obstructive pulmonary disease) (3) Diabetes (4) Hx of iron deficiency (5) History of CVA (cerebrovascular accident) (6) Severe anemia (7) Upper GI bleed (8) HTN (hypertension) Assessment and Plan The findings were discussed with the patient and Power of [employer] Carter. Recommendations are given for surgical management, to allow for mobilization and pain control. The nature of the planned surgical procedure, the risks, the benefits as well as postoperative expectations have been discussed with the patient and POA in detail. In addition, alternatives of the treatment and risks were discussed. The patient and POA acknowledges full understanding and consents to it. Written by Cristina Saez (Ashley), acting as scribe for Dr. Jeanmarie Oneill on 06/01/16 at 19:29. (Cristina Saez) Assessment and Plan The exam, history, and the medical decision-making described in the above note were completed with the assistance of the mid-level provider. I reviewed and agree with the findings presented. I attest that I had a [id number] encounter with the patient on the same day, and personally performed and documented my assessment and findings in the medical record. (Jeanmarie Oneill MD) Cristina Saez Jun 01, 2016 19:30 Jeanmarie Oneill MD Jun 01, 2016 20:39
[2016-06-01] MEDS ORDERED: GENTAMICIN SULFATE 80 MG/2 ML VIAL ONE (19:33)
[2016-06-01] MEDS ORDERED: MIRABEGRON 50 MG PO SCH (21:00)
[2016-06-01] MEDS: CARVEDILOL 3.125 MG TAB PO SCH (21:00)
--- NOTE | 2016-06-01 22:54 | PD.OP ---
cc: Jeanmarie Oneill MD Operative Report Date of Surgery: Jun 01, 2016 Preoperative Diagnosis: (1) Intertrochanteric fracture of left hip Postoperative Diagnosis: (1) Intertrochanteric fracture of left hip Procedure: Close reduction with trochanteric nail fixation left proximal femur fracture Implants used: Synthes intermediate trochanteric nail Anesthesia: General Surgeon: Jeanmarie Oneill Typesetter Perforator Operator(s): Cristina Saez PA-C (Ashley) The surgical procedure was assisted by my physician's veterinary assistant. Her presence was necessary throughout the case for manipulation and positioning of the surgical extremity. My PA was assisting me throughout the duration of this procedure. The skill set of the physician veterinary assistant was medically necessary to complete this procedure. During the surgical case the surgical supply assistant was working at the back table and the physician veterinary assistant was directly assisting me. Operation and Findings: Indications this 75-year-old wheelchair ambulator fell injuring her left hip. She presented to [facility]. X-rays revealed a displaced intertrochanteric proximal femur fracture. Recommendations are given for internal fixation to allow mobilization and pain control. Procedure and findings: Patient was taken to the operative suite and after undergoing an adequate level of general anesthesia was placed supine on the fracture table. Left lower extremity was positioned in skin traction and the preoperative reduction checked in both the AP and lateral planes with the C- arm. The left hip was then prepped and draped in usual sterile fashion with alcohol and Hibiclens. A 3 cm incision was made extending from the greater trochanter. This was carried down through skin and subcutaneous tense tissue with a knife. Hemostasis was obtained with cautery. The muscular fascia was incised and split longitudinally. An entry point was selected at the tip of the greater trochanter. There was displacement of the greater trochanter. A threaded guidepin was advanced. The position was checked in both the AP and lateral planes with the C-arm. It was subsequently overdrilled. A 10 x 130 intermediate trochanteric nail was then impacted in the place. Utilizing an trocar and an outrigger device an additional incision was made distally. A trocar was placed against the lateral cortex. A threaded guidepin was advanced to the lateral cortex into the femoral neck and seated in the subchondral bone of the femoral head. A measurement was then made. The lateral cortex was overdrilled. A 90 helical blade was then impacted in the place. The locking mechanism was then seated. Utilizing the outrigger device in the same distal incision a trocar was then placed for distal interlocking. The cortices were drilled and the appropriate length locking screw placed. The position of the fracture reduction and placement of the internal fixation were then checked in both the AP and lateral planes with the C-arm. The wounds were then thoroughly irrigated. There were closed in layers utilizing #1 Vicryl suture on the muscular fascia, 0 Vicryl suture on the deep tissue, 2-0 Vicryl suture and the subcutaneous tense tissue and manish on the skin. Sterile dressings were applied the patient was awakened transferred to the hospital bed and taken to the recovery room in stable condition. Estimated blood loss: 150 cc Complications: None Jeanmarie Oneill MD Jun 01, 2016 22:54
[2016-06-01] MEDS ORDERED: ONDANSETRON HCL 4 MG/2 ML VIAL IVP PRN (23:00)
[2016-06-01] MEDS ORDERED: ACETAMINOPHEN 325 MG TAB PO PRN (23:00)
[2016-06-01] MEDS ORDERED: POVIDONE IODINE 10% SOLN 118 ML BOTTLE TOPICAL PRN (23:00)
[2016-06-01] MEDS ORDERED: TEMAZEPAM 15 MG CAP PO PRN (23:00)
[2016-06-01] MEDS ORDERED: Post-op Orders (for Pharmacy) MISC XX ONE (23:00)
[2016-06-01] MEDS ORDERED: BISACODYL 10 MG SUPP PR PRN (23:00)
--- NOTE | 2016-06-01 23:02 | RADRPT ---
EXAM DATE/TIME: 06/01/2016 22:25 [facility] COMPARISON: No previous studies available for comparison. INDICATIONS : ORIF left hip. MEDICAL HISTORY : Stroke. Myocardial infarction. Hypertension. Seizures, Diabetes SURGICAL HISTORY : Carotid endarterectomy. Cardiac catheterization ENCOUNTER: Subsequent ACUITY: 2 days PAIN SCORE: Non-responsive. LOCATION: Left pelvis FINDINGS: The patient is status post open reduction internal fixation of an intertrochanteric fracture on the l eft. Alignment is anatomic. CONCLUSION: Anatomic alignment. Fernando Mccullough MD FACR on June 01, 2016 at 22:49 Board Certified Radiologist. This report was verified electronically.
[2016-06-01] MEDS ORDERED: DO NOT ADM ANY ANTICOAGULANT DRUGS XX PRN (23:30)
[2016-06-01] MEDS ORDERED: *morphine SULFATE 8 MG/ML PERIprocedure ONLY ONE (23:50)
[2016-06-02 04:00] VITALS: BP 130/57; PULSE 88; RESP 20; TEMP 97.6; O2SAT 96
[2016-06-02 05:41] LABS: HEMATOCRIT 25.4 % (35.0-46.0); MEAN CELL VOLUME 95.7 FL (80.0-100.0); MEAN CORPUSCULAR HEMOGLOBIN 32.6 PG (27.0-34.0); MEAN CORPUSCULAR HGB CONC 34.1 % (32.0-36.0); PLATELET COUNT 158 TH/MM3 (150-450); RED BLOOD COUNT 2.65 MIL/MM3 (4.00-5.30); RED CELL DISTRIBUTION WIDTH 14.2 % (11.6-17.2); REVIEW FLAG FINAL; WHITE BLOOD COUNT 6.2 TH/MM3 (4.0-11.0)
[2016-06-02 06:12] LABS: BICARBONATE 25.1 MEQ/L (21.0-32.0); POTASSIUM 4.3 MEQ/L (3.5-5.1)
[2016-06-02] MEDS: INSULIN ASPART SUPPLEMENTAL SCALE SQ SCH ×4 (06:35→20:59)
--- NOTE | 2016-06-02 07:38 | PD.ORT.PN ---
Subjective Post Op Day #: 1 Subjective Remarks Pt laying comfortably in bed, sleeping but arousable, answering questions appropriately at this time. She admits her pain in left hip is controlled well. No other complaints noted. Pt EILEEN is long time friend. Objective Vitals Vital Signs Date Time Temp Pulse Resp B/P Pulse Ox O2 Delivery O2 Flow Rate FiO2 06/02/16 04:00 97.6 88 20 130/57 96 06/02/16 00:00 98.2 65 14 145/63 99 Nasal Cannula 3 06/01/16 23:45 61 16 139/59 99 Nasal Cannula 4 06/01/16 23:30 63 16 96/73 99 Nasal Cannula 4 06/01/16 23:15 74 16 115/72 97 Nasal Cannula 4 06/01/16 23:00 74 14 130/72 95 Simple Mask 8 06/01/16 22:56 98.6 86 14 141/75 92 Simple Mask 8 06/01/16 19:30 57 16 137/63 97 Nasal Cannula 3 06/01/16 18:30 58 16 159/70 98 Nasal Cannula 3 06/01/16 16:30 56 16 146/65 97 Nasal Cannula 3 06/01/16 15:00 57 16 141/83 97 Nasal Cannula 3 06/01/16 14:00 58 16 102/51 97 Nasal Cannula 3 06/01/16 13:40 60 16 88/51 99 Nasal Cannula 3 06/01/16 13:00 56 16 111/52 97 Nasal Cannula 3 06/01/16 12:20 59 16 90/40 98 Nasal Cannula 3 06/01/16 12:09 64 16 76/40 98 Nasal Cannula 3 06/01/16 12:00 98 Nasal Cannula 3 06/01/16 11:20 68 16 108/52 97 Nasal Cannula 4 06/01/16 10:10 67 16 119/58 96 Nasal Cannula 4 06/01/16 10:00 72 16 72/40 96 Nasal Cannula 4 06/01/16 10:00 63 16 96 Nasal Cannula 4 06/01/16 09:55 99 Nasal Cannula 4 06/01/16 09:53 99.0 66 16 88/53 90 I/O 06/01/16 06/01/16 06/01/16 06/02/16 06/02/16 06/02/16 07:00 15:00 23:00 07:00 15:00 23:00 Intake Total 700 ml 948 ml Output Total 825 ml 525 ml Balance -125 ml 423 ml Intake Oral 180 ml IV Total 768 ml Other 700 ml Output Urine Total 525 ml Estimated Blood Loss 125 ml Other 700 ml # Bowel Movements 0 Result Diagram: 06/02/16 0525 06/02/16 0525 Other Results Laboratory Tests Test 06/01/16 10:25 Prothrombin Time 10.7 SEC (9.8-11.6) Prothromb Time International 1.0 RATIO Ratio Imaging Last 48 hours Impressions Hip and Pelvis X-Ray 06/01/16 1008 Signed Impressions: Service Date/Time: Wednesday, June 01, 2016 11:11 - CONCLUSION: Comminuted intratrochanteric fracture of the left hip. Gary Salamanca MD Head CT 06/01/16 0000 Signed Impressions: Service Date/Time: Wednesday, June 01, 2016 14:44 - CONCLUSION: No evidence of acute infarct, hemorrhage, mass or edema. Intact calvarium. Tony Ren MD Chest X-Ray 06/01/16 0000 Signed Impressions: Service Date/Time: Wednesday, June 01, 2016 11:27 - CONCLUSION: 1. No acute cardiopulmonary process to explain current clinical symptoms. 2. Severe degenerative changes in both shoulders with degenerative spurring in the mid dorsal spine. Gary Salamanca MD Procedures Close reduction with trochanteric nail fixation left proximal femur fracture - Objective Remarks LLE: Incision is clean and dry. Extremity is warm. Mild swelling and tenderness to palpation over incision site. Motion not tested due to pain. No calf pain. Negative Homans sign. Good cap refill. Sensation intact. 2+ pedal pulses. Neurovascular intact. Assessment & Plan Ortho Post Op Day #: 1 Problem List: (1) Intertrochanteric fracture of left hip (2) COPD (chronic obstructive pulmonary disease) (3) Diabetes (4) Hx of iron deficiency (5) History of CVA (cerebrovascular accident) (6) Severe anemia (7) Upper GI bleed (8) HTN (hypertension) Assessment and Plan Ortho status stable POD #1. Progress rehab per protocol. Continue Lovenox for DVT prophylaxis, pain management and bowel regimen. SCDs in place. Discharge planning. Cristina Saez 18, 2017 07:38
--- NOTE | 2016-06-02 07:59 | EKG ---
Date Performed: 06/01/2016 Time Performed: 10:28:54 PTAGE: 75 years EKG: Sinus rhythm POSSIBLE LEFT ATRIAL ENLARGEMENT LEFT VENTRICULAR HYPERTROPHY AND ST-T CHANGE Compared to previous t racing, QRS VOLTAGE HAS INCREASED ABNORMAL ECG PREVIOUS TRACING : 03/09/2016 15.29 DOCTOR: Mahad Ramsey Interpretating Date/Time 06/02/2016 07:58:49
[2016-06-02 08:00] VITALS: BP 123/60; PULSE 61; RESP 14; TEMP 98.9; O2SAT 96
[2016-06-02] MEDS ORDERED: ISOSORBIDE DINITRATE 60 MG PO SCH (09:00)
[2016-06-02] MEDS: ARTIFICIAL TEARS OPTH SOLN 15 ML BTL EACH EYE SCH ×3 (10:08→18:00)
[2016-06-02] MEDS: CARVEDILOL 3.125 MG TAB PO SCH ×2 (10:09→20:59)
[2016-06-02] MEDS: SODIUM CHLORIDE 0.9% FLUSH 5 ML FLUSH IVF SCH ×2 (10:09→20:35)
[2016-06-02] MEDS: levETIRAcetam 500 MG TAB PO SCH ×2 (10:10→20:34)
[2016-06-02] MEDS: ESCITALOPRAM OXALATE 20 MG TAB PO SCH (10:11)
[2016-06-02] MEDS: PANTOPRAZOLE SOD 40 MG DELAYED RELEASE TAB PO SCH (10:12)
[2016-06-02] MEDS: ACETAMINOPHEN/HYDROcodone 325 MG/5 MG TAB PO PRN ×3 (11:06→20:40)
[2016-06-02 12:00] VITALS: BP 132/52; PULSE 61; RESP 16; TEMP 98.6; O2SAT 98
[2016-06-02] MEDS: LACTATED RINGER'S 1000 ML INJ 1,000 ML IV SCH (14:58)
[2016-06-02 15:15] VITALS: BP 125/73; PULSE 61; RESP 19; TEMP 97.6; O2SAT 95
--- NOTE | 2016-06-02 17:22 | HHI.PR ---
Subjective Remarks s/p Close reduction with trochanteric nail fixation left proximal femur fracture 06/01 spent night in PACU, did well post op minimal left hip pain no fever no cp no sob pale, Hgb 10.6 yesterday, today 8.6/25.4 Objective Objective Results - Vital Signs Date Time Temp Pulse Resp B/P Pulse Ox O2 Delivery O2 Flow Rate FiO2 06/02/16 16:13 16 06/02/16 15:15 97.6 61 19 125/73 95 06/02/16 12:00 98.6 61 16 132/52 98 06/02/16 08:00 98.9 61 14 123/60 96 06/02/16 04:00 97.6 88 20 130/57 96 06/02/16 00:00 98.2 65 14 145/63 99 Nasal Cannula 3 06/01/16 23:45 61 16 139/59 99 Nasal Cannula 4 06/01/16 23:30 63 16 96/73 99 Nasal Cannula 4 06/01/16 23:15 74 16 115/72 97 Nasal Cannula 4 06/01/16 23:00 74 14 130/72 95 Simple Mask 8 06/01/16 22:56 98.6 86 14 141/75 92 Simple Mask 8 06/01/16 19:30 57 16 137/63 97 Nasal Cannula 3 06/01/16 18:30 58 16 159/70 98 Nasal Cannula 3 I/O 06/01/16 06/01/16 06/01/16 06/02/16 06/02/16 06/02/16 07:00 15:00 23:00 07:00 15:00 23:00 Intake Total 700 ml 948 ml Output Total 825 ml 525 ml Balance -125 ml 423 ml Intake Oral 180 ml IV Total 768 ml Other 700 ml Output Urine Total 525 ml Estimated Blood Loss 125 ml Other 700 ml # Bowel Movements 0 Result Diagram: 06/02/16 0525 06/02/16 0525 Imaging Last Impressions Hip and Pelvis X-Ray 06/01/16 1008 Signed Impressions: Service Date/Time: Wednesday, June 01, 2016 11:11 - CONCLUSION: Comminuted intratrochanteric fracture of the left hip. Gary Salamanca MD Chest X-Ray 06/01/16 0000 Signed Impressions: Service Date/Time: Wednesday, June 01, 2016 11:27 - CONCLUSION: 1. No acute cardiopulmonary process to explain current clinical symptoms. 2. Severe degenerative changes in both shoulders with degenerative spurring in the mid dorsal spine. Gary Salamanca MD Other Results Laboratory Tests Test 06/02/16 05:25 White Blood Count 6.2 Red Blood Count 2.65 Hemoglobin 8.6 Hematocrit 25.4 Mean Corpuscular Volume 95.7 Mean Corpuscular Hemoglobin 32.6 Mean Corpuscular Hemoglobin 34.1 Concent Red Cell Distribution Width 14.2 Platelet Count 158 Mean Platelet Volume 8.4 Sodium Level 141 Potassium Level 4.3 Chloride Level 108 Carbon Dioxide Level 25.1 Anion Gap 8 Blood Urea Nitrogen 27 Creatinine 0.88 Estimat Glomerular Filtration 63 Rate Random Glucose 168 Calcium Level 7.7 ROS General: Other (poor historian ) Pulmonary: Wheezing Neuro/MS: Other (left hip pain ) Physical Exam Physical Exam GENERAL: This is a well-nourished, well-developed patient, in no apparent distress. SKIN: Pale, cool, dry. HEAD: Atraumatic. Normocephalic. No temporal or scalp tenderness. EYES: Pupils equal round and reactive. Extraocular motions intact. No scleral icterus. No injection or drainage. ENT: Nose without bleeding, purulent drainage or septal hematoma. Throat without erythema, tonsillar hypertrophy or exudate. Uvula midline. Airway patent. NECK: Trachea midline. No JVD or lymphadenopathy. Supple, nontender, no meningeal signs. CARDIOVASCULAR: Regular rate and rhythm with soft murmurs, no rubs, no gallops RESPIRATORY: Coarse, exp. wheezing Slightly diminished at bases. GASTROINTESTINAL: Abdomen soft, non-tender, nondistended. No hepato-splenomegaly , or palpable masses. No guarding. MUSCULOSKELETAL: left hip with dressing D/I. Intact sensation, left pedal pulse 2+. Other joints without any abnormalities. NEUROLOGICAL: Awake, oriented x 2, poor historian. No focal deficits, following commands. Urinary Catheter: Yes Wheeler insert reason: Measure Accurate Output Vascular Central Line Catheter: No A/P Diagnosis: (1) Intertrochanteric fracture of left hip (2) Hypotension (3) Hyperglycemia (4) Hx of iron deficiency (5) Seizure (6) Diabetes (7) CAD (coronary artery disease) (8) Hx of arteriovenous malformation (AVM) (9) Osteoporosis (10) COPD (chronic obstructive pulmonary disease) Assessment and Plan 75-year-old elderly female admitted from senior care, had recent fall, brought to the emergency room and was found with common noted proximal left femur fracture. History of osteoporosis. -s/p Close reduction with trochanteric nail fixation left proximal femur fracture 06/01 -Orthopedic input appreciated -Post op ortho care -Pain management -Lovenox 40 mg SQ for DVT prophylaxis Hypotension, etiology unclear, doesn't appear septic, on multiple medications for blood pressure-improving -Continue with cautious hydration -Monitor BP closely -Hold BP meds for now Anemia,. Hx GIB sec. AVM, GRAHAM -post op HH 8.6/25.4, continue to monitor may need PRBC transfusion -Continue PO iron COPD, stable -Duonebs PRN DM, II -Accu-Cheks before meals and at bedtime with insulin therapy as needed CAD Continue with home medications Seizure disorder -Seizure precautions -Continue Keppra SCDs/Lovenox for DVT prophylaxis Protonix for GI prophylaxis DC planning in progress, to SNF 1-2 days Labs in am D/W RN D/W Dr. Johnson D/W pt. This patient was seen by myself and Dr. Johnson, this note is written on his behalf Problem Qualifiers (1) Intertrochanteric fracture of left hip: Qualified Code: S72.142A - Intertrochanteric fracture of left hip, closed, initial encounter (2) Hypotension: Qualified Code: I95.9 - Hypotension, unspecified hypotension type (3) Diabetes: Qualified Code: E11.8 - Type 2 diabetes mellitus with complication, unspecified [place] [facility] insulin use status (4) CAD (coronary artery disease): Qualified Code: I25.10 - Coronary artery disease involving [place] coronary artery of [place] heart without angina pectoris (5) COPD (chronic obstructive pulmonary disease): Qualified Code: J44.9 - Chronic obstructive pulmonary disease, unspecified COPD type Tracie Parnell Jun 02, 2016 17:21
[2016-06-02 20:00] VITALS: BP 108/43; PULSE 86; RESP 19; TEMP 98.2; O2SAT 92
[2016-06-02] MEDS: ATORVASTATIN 40 MG TAB PO SCH (20:34)
[2016-06-02] MEDS: MIRTAZAPINE 15 MG TAB PO SCH (20:34)
[2016-06-02] MEDS: PHENYTOIN SODIUM 100 MG CAP PO SCH (20:35)
[2016-06-02] MEDS ORDERED: ENOXAPARIN SODIUM 30 MG/0.3 ML SYRINGE SQ SCH (22:00)
[2016-06-02] MEDS: ENOXAPARIN SODIUM 40 MG/0.4 ML SYRINGE SQ SCH (22:10)
[2016-06-03 00:23] VITALS: BP 106/46; PULSE 75; RESP 16; TEMP 97.6; O2SAT 92
[2016-06-03 04:57] LABS: HEMATOCRIT 23.1 % (35.0-46.0); MEAN CORPUSCULAR HEMOGLOBIN 32.7 PG (27.0-34.0); PLATELET COUNT 138 TH/MM3 (150-450); REVIEW FLAG FINAL; WHITE BLOOD COUNT 5.1 TH/MM3 (4.0-11.0)
[2016-06-03 05:23] LABS: BICARBONATE 24.4 MEQ/L (21.0-32.0); POTASSIUM 3.9 MEQ/L (3.5-5.1)
[2016-06-03] MEDS: INSULIN ASPART SUPPLEMENTAL SCALE SQ SCH ×4 (07:00→20:48)
[2016-06-03] MEDS: MULTIVITAMINS/MINERALS THERAPEUTIC TAB PO SCH ×2 (07:55→20:32)
[2016-06-03] MEDS: CARVEDILOL 3.125 MG TAB PO SCH ×2 (07:55→20:32)
[2016-06-03] MEDS: ESCITALOPRAM OXALATE 20 MG TAB PO SCH (07:55)
[2016-06-03] MEDS: PANTOPRAZOLE SOD 40 MG DELAYED RELEASE TAB PO SCH (07:55)
[2016-06-03] MEDS: ARTIFICIAL TEARS OPTH SOLN 15 ML BTL EACH EYE SCH ×3 (07:56→18:00)
[2016-06-03] MEDS: levETIRAcetam 500 MG TAB PO SCH ×2 (07:56→20:32)
[2016-06-03] MEDS: SODIUM CHLORIDE 0.9% FLUSH 5 ML FLUSH IVF SCH ×2 (07:56→20:33)
[2016-06-03 08:00] VITALS: BP 112/57; PULSE 73; RESP 18; TEMP 99; O2SAT 90
--- NOTE | 2016-06-03 08:55 | PD.ORT.PN ---
Subjective Post Op Day #: 2 Subjective Remarks Pt laying comfortably in bed, answering questions appropriately at this time. She admits her pain in left hip is controlled well. She states she will try walking today with PT. No other complaints noted. Pt EILEEN is long time friend. Objective Vitals Vital Signs Date Time Temp Pulse Resp B/P Pulse Ox O2 Delivery O2 Flow Rate FiO2 06/03/16 08:00 99.0 73 18 112/57 90 06/03/16 07:54 Room Air 06/03/16 00:23 97.6 75 16 106/46 92 06/02/16 20:00 98.2 86 19 108/43 92 06/02/16 16:13 16 06/02/16 15:15 97.6 61 19 125/73 95 06/02/16 12:00 98.6 61 16 132/52 98 I/O 06/02/16 06/02/16 06/02/16 06/03/16 06/03/16 06/03/16 07:00 15:00 23:00 07:00 15:00 23:00 Intake Total 948 ml 1736 ml Output Total 525 ml 600 ml 650 ml Balance 423 ml 1136 ml -650 ml Intake Oral 180 ml 480 ml IV Total 768 ml 1256 ml Output Urine Total 525 ml 600 ml 650 ml # Bowel Movements 0 1 2 Result Diagram: 06/03/16 0409 06/03/16 0409 Imaging Last 48 hours Impressions Hip and Pelvis X-Ray 06/01/16 1008 Signed Impressions: Service Date/Time: Wednesday, June 01, 2016 11:11 - CONCLUSION: Comminuted intratrochanteric fracture of the left hip. Gary Salamanca MD Head CT 06/01/16 0000 Signed Impressions: Service Date/Time: Wednesday, June 01, 2016 14:44 - CONCLUSION: No evidence of acute infarct, hemorrhage, mass or edema. Intact calvarium. Tony Ren MD Chest X-Ray 06/01/16 0000 Signed Impressions: Service Date/Time: Wednesday, June 01, 2016 11:27 - CONCLUSION: 1. No acute cardiopulmonary process to explain current clinical symptoms. 2. Severe degenerative changes in both shoulders with degenerative spurring in the mid dorsal spine. Gary Salamanca MD Procedures Close reduction with trochanteric nail fixation left proximal femur fracture - Objective Remarks LLE: Incision is clean and dry. Extremity is warm. Mild swelling and tenderness to palpation over incision site. Good motion of ankle and toes. No calf pain. Negative Homans sign. Good cap refill. Sensation intact. 2+ pedal pulses. Neurovascular intact. Assessment & Plan Ortho Post Op Day #: 2 Problem List: (1) Intertrochanteric fracture of left hip (2) COPD (chronic obstructive pulmonary disease) (3) Diabetes (4) Hx of iron deficiency (5) History of CVA (cerebrovascular accident) (6) Severe anemia (7) Upper GI bleed (8) HTN (hypertension) Assessment and Plan Ortho status stable POD #2. Progress rehab per protocol. Continue Lovenox for DVT prophylaxis, pain management and bowel regimen. SCDs in place. Dressing change today. Discharge planning - most likely rehab center. Cristina Saez Jun 03, 2016 08:55
[2016-06-03] MEDS ORDERED: ACETAMINOPHEN 325 MG TAB PO PRN (10:30)
[2016-06-03] MEDS ORDERED: SODIUM CHLOR 0.9% 250 ML INJ 250 ML IV ONE (10:30)
[2016-06-03 11:30] VITALS: BP 129/57; PULSE 67; RESP 18; TEMP 99.1; O2SAT 95
[2016-06-03 11:45] VITALS: BP 120/58; PULSE 63; RESP 17; TEMP 98.3; O2SAT 95
[2016-06-03] MEDS: LACTATED RINGER'S 1000 ML INJ 1,000 ML IV SCH (12:24)
--- NOTE | 2016-06-03 13:11 | HHI.PR ---
Subjective Remarks No facial grimmace at rest. No SOB Problem Qualifiers (1) Intertrochanteric fracture of left hip: Qualified Code: S72.142A - Intertrochanteric fracture of left hip, closed, initial encounter (2) Hypotension: Qualified Code: I95.9 - Hypotension, unspecified hypotension type (3) Diabetes: Qualified Code: E11.8 - Type 2 diabetes mellitus with complication, unspecified [employer] insulin use status (4) CAD (coronary artery disease): Qualified Code: I25.10 - Coronary artery disease involving curyung coronary artery of curyung heart without angina pectoris (5) COPD (chronic obstructive pulmonary disease): Qualified Code: J44.9 - Chronic obstructive pulmonary disease, unspecified COPD type (Shiela Baker) Objective Objective Results - Vital Signs Date Time Temp Pulse Resp B/P Pulse Ox O2 Delivery O2 Flow Rate FiO2 06/03/16 11:45 98.3 63 17 120/58 95 06/03/16 11:36 Nasal Cannula 2.00 06/03/16 11:30 99.1 67 18 129/57 95 06/03/16 09:17 Nasal Cannula 2.00 06/03/16 08:00 99.0 73 18 112/57 90 06/03/16 07:54 Room Air 06/03/16 00:23 97.6 75 16 106/46 92 06/02/16 20:00 98.2 86 19 108/43 92 06/02/16 16:13 16 06/02/16 15:15 97.6 61 19 125/73 95 I/O 06/02/16 06/02/16 06/02/16 06/03/16 06/03/16 06/03/16 07:00 15:00 23:00 07:00 15:00 23:00 Intake Total 948 ml 1736 ml Output Total 525 ml 600 ml 650 ml Balance 423 ml 1136 ml -650 ml Intake Oral 180 ml 480 ml IV Total 768 ml 1256 ml Output Urine Total 525 ml 600 ml 650 ml # Bowel Movements 0 1 2 (Shiela Baker) Result Diagram: 06/03/1640806/03/16408 ROS General: Other (ROS limited to pt. dementia, appears unremarkable) (Shiela Baker) Physical Exam Physical Exam PHYSICAL EXAMINATION GENERAL: This is a thin, frail female who appears to be in no acute distress. She is drowsy and awakens after several verbal attempts., . HEAD: Normocephalic without any lesion or mass noted. Facial features appear symmetric. OROPHARYNGEAL: Oropharynx without erythema or edema, dry. NECK: Supple. No nuchal rigidity or lymphadenopathy. Trachea midline without deviation. CARDIAC: Regular rhythm, regular rate, S1 and S2 are heard. Murmur no gallops or rubs. LUNGS: Clear to auscultation bilaterally. No wheeze, No rhonchi or rales. No use of accessory muscles on inspiration or expiration. ABDOMEN: flat, Soft, nontender, no organomegaly or masses. Bowel sounds are heard in all four quadrants. No rebound. No guarding. EXTREMITIES: No edema. Pulses equal bilateral. No cyanosis. Lt hip small dressing CDI. Small amount of breakthrough bleeding note. Minimal edema noted. NEUROLOGICAL: patient mood and affect flat. No focal deficit SKIN:Warm and moist, pale, dry Objective Remarks Poor historian (Shiela Baker) A/P Assessment and Plan Diagnosis: (1) Intertrochanteric fracture of left hip (2) Hypotension (3) Hyperglycemia (4) Hx of iron deficiency (5) Seizure (6) Diabetes (7) CAD (coronary artery disease) (8) Hx of arteriovenous malformation (AVM) (9) Osteoporosis (10) COPD (chronic obstructive pulmonary disease) 11. Anemia, probable post op blood loss Assessment and Plan 75-year-old elderly female admitted from long-term, had recent fall, brought to the emergency room and was found with common noted proximal left femur fracture. History of osteoporosis. -s/p Close reduction with trochanteric nail fixation left proximal femur fracture 06/01 -Orthopedic input appreciated -Post op ortho care -Pain management -Lovenox 40 mg SQ for DVT prophylaxis [place] due to probable blood loss Hypotension, etiology unclear, doesn't appear septic, on multiple medications for blood pressure-improving -Continue with cautious hydration -Monitor BP closely -Hold BP meds for now Anemia,. Hx GIB sec. AVM, GRAHAM -post op PRBC transfusion today, HGB 7.9 -Continue PO iron COPD, stable -Duonebs PRN DM, II -Accu-Cheks before meals and at bedtime with insulin therapy as needed CAD Continue with home medications Seizure disorder -Seizure precautions -Continue Keppra SCDs/Lovenox for DVT prophylaxis Protonix for GI prophylaxis DC planning in progress, to SNF 1-2 days Labs in am D/W RN D/W Dr. Johnson D/W pt. This patient was seen by myself and Dr. Johnson, this note is written on his behalf Discharge Planning initiated on admission Discussed With: Nurse, Other (Dr. Johnson, nurse, case management) (Shiela Baker) Assessment and Plan pt is seen & examined d/w PT radha silveira current tx Agree w above ss for d/c planning/possible d/c to SNF in am (Tabby Johnson MD) Shiela Baker Jun 03, 2016 13:11 Tabby Johnson MD Jun 03, 2016 17:03
[2016-06-03] MEDS: ACETAMINOPHEN/HYDROcodone 325 MG/5 MG TAB PO PRN ×2 (13:23→17:43)
[2016-06-03 16:00] VITALS: BP 162/67; PULSE 71; RESP 18; TEMP 98.4; O2SAT 97
[2016-06-03 20:00] VITALS: BP 174/72; PULSE 76; RESP 18; TEMP 98.7; O2SAT 93
[2016-06-03] MEDS: ATORVASTATIN 40 MG TAB PO SCH (20:32)
[2016-06-03] MEDS: PHENYTOIN SODIUM 100 MG CAP PO SCH (20:33)
[2016-06-03] MEDS: MIRTAZAPINE 15 MG TAB PO SCH (20:33)
[2016-06-03] MEDS: ENOXAPARIN SODIUM 40 MG/0.4 ML SYRINGE SQ SCH (22:52)
[2016-06-04] VITALS (7 sets, daily range): BP systolic 119–191; BP diastolic 41–81; PULSE 59–81; RESP 16–20; TEMP 96.2–99.2; O2SAT 92–96
[2016-06-04] MEDS: ACETAMINOPHEN/HYDROcodone 325 MG/5 MG TAB PO PRN ×5 (00:34→20:22)
[2016-06-04] MEDS: LACTATED RINGER'S 1000 ML INJ 1,000 ML IV SCH ×2 (00:54→13:24)
[2016-06-04] MEDS: INSULIN ASPART SUPPLEMENTAL SCALE SQ SCH ×4 (07:00→21:58)
--- NOTE | 2016-06-04 07:46 | PD.ORT.PN ---
Subjective Post Op Day #: 3 Subjective Remarks Pt laying comfortably in bed, answering questions appropriately at this time. She admits her pain in left hip is controlled well. She admits she did not walk yesterday but will try today with PT. No other complaints noted. Pt EILEEN is long time friend. Objective Vitals Vital Signs Date Time Temp Pulse Resp B/P Pulse Ox O2 Delivery O2 Flow Rate FiO2 06/04/16 06:52 Room Air 06/04/16 04:00 98.0 65 20 146/60 94 06/04/16 00:00 98.9 70 20 148/69 93 06/03/16 20:00 98.7 76 18 174/72 93 06/03/16 16:00 98.4 71 18 162/67 97 06/03/16 11:45 98.3 63 17 120/58 95 06/03/16 11:36 Nasal Cannula 2.00 06/03/16 11:30 99.1 67 18 129/57 95 06/03/16 09:17 Nasal Cannula 2.00 06/03/16 08:00 99.0 73 18 112/57 90 06/03/16 07:54 Room Air I/O 06/03/16 06/03/16 06/03/16 06/04/16 06/04/16 06/04/16 07:00 15:00 23:00 07:00 15:00 23:00 Intake Total 1205 ml 240 ml 120 ml Output Total 650 ml 220 ml 2 ml Balance -650 ml 1205 ml 20 ml 118 ml Intake Oral 480 ml 240 ml 120 ml IV Total 400 ml Packed Cells 325 ml Output Urine Total 650 ml 220 ml 2 ml # Voids 2 # Bowel Movements 2 0 0 0 Result Diagram: 06/03/16 0409 06/03/16 0409 Imaging Last 48 hours Impressions Hip and Pelvis X-Ray 06/01/16 1008 Signed Impressions: Service Date/Time: Wednesday, June 01, 2016 11:11 - CONCLUSION: Comminuted intratrochanteric fracture of the left hip. Gary Salamanca MD Head CT 06/01/16 0000 Signed Impressions: Service Date/Time: Wednesday, June 01, 2016 14:44 - CONCLUSION: No evidence of acute infarct, hemorrhage, mass or edema. Intact calvarium. Tony Ren MD Chest X-Ray 06/01/16 0000 Signed Impressions: Service Date/Time: Wednesday, June 01, 2016 11:27 - CONCLUSION: 1. No acute cardiopulmonary process to explain current clinical symptoms. 2. Severe degenerative changes in both shoulders with degenerative spurring in the mid dorsal spine. Gary Salamanca MD Procedures Close reduction with trochanteric nail fixation left proximal femur fracture - Objective Remarks LLE: Incision is clean and dry. Extremity is warm. Mild swelling and tenderness to palpation over incision site. Good motion of ankle and toes. No calf pain. Negative Homans sign. Good cap refill. Sensation intact. 2+ pedal pulses. Neurovascular intact. Assessment & Plan Ortho Post Op Day #: 3 Problem List: (1) Intertrochanteric fracture of left hip (2) COPD (chronic obstructive pulmonary disease) (3) Diabetes (4) Hx of iron deficiency (5) History of CVA (cerebrovascular accident) (6) Severe anemia (7) Upper GI bleed (8) HTN (hypertension) Assessment and Plan Ortho status stable POD #3. Progress rehab per protocol. Continue Lovenox for DVT prophylaxis, pain management and bowel regimen. SCDs in place. Dressing change today. Discharge planning - most likely rehab center. Cristina Saez Jun 04, 2016 07:46
[2016-06-04] MEDS: PANTOPRAZOLE SOD 40 MG DELAYED RELEASE TAB PO SCH (07:56)
[2016-06-04] MEDS: ESCITALOPRAM OXALATE 20 MG TAB PO SCH (07:56)
[2016-06-04] MEDS: MULTIVITAMINS/MINERALS THERAPEUTIC TAB PO SCH ×2 (07:56→21:48)
[2016-06-04] MEDS: levETIRAcetam 500 MG TAB PO SCH ×2 (07:56→21:48)
[2016-06-04] MEDS: SODIUM CHLORIDE 0.9% FLUSH 5 ML FLUSH IVF SCH ×2 (07:57→21:49)
[2016-06-04] MEDS: ARTIFICIAL TEARS OPTH SOLN 15 ML BTL EACH EYE SCH ×3 (07:57→18:00)
[2016-06-04] MEDS: CARVEDILOL 3.125 MG TAB PO SCH ×2 (07:57→21:48)
--- NOTE | 2016-06-04 12:20 | HHI.DS ---
Discharge Summary Admission Date Jun 01, 2016 at 12:00 Discharge Date: Jun 04, 2016 Admitting Diagnosis hip fracture, hyperglycemia (1) Intertrochanteric fracture of left hip Diagnosis: Principal (2) Hypotension Diagnosis: Secondary (3) Hyperglycemia Diagnosis: Secondary (4) Hx of iron deficiency Diagnosis: Secondary (5) Seizure Diagnosis: Secondary (6) Diabetes Diagnosis: Secondary (7) CAD (coronary artery disease) Diagnosis: Secondary (8) Hx of arteriovenous malformation (AVM) Diagnosis: Secondary (9) Osteoporosis Diagnosis: Secondary (10) COPD (chronic obstructive pulmonary disease) Diagnosis: Secondary Procedures Repair of left hip fx. Brief History This was a pleasant 75-year-old female patient with a past medical history which includes carotid stenosis, diabetes mellitus insulin-dependent, hypertension CVA 2012, seizure, anxiety, CAD with TN, hyperlipidemia, compression fracture of L3, duodenal AVM, GRAHAM, GIB due to AVM. Was last admitted 02/2016 for severe anemia secondary to GIB, had EGD and clipping of AVMs. Pt. was sent from a local intermediate after she had a fall and had a left hip injury. It was not clear as to the mechanics of the fall, patient does not recall falling. Patient was poor historian. Per ER report, an x-ray was completed at the facility as they noted left leg shortening and pain. X- ray showed hip fracture. Patient was brought to the hospital for further evaluation. CBC/BMP: 06/03/16 0409 06/03/16 0409 Significant Findings Laboratory Tests Test 06/02/16 06/03/16 05:25 04:09 Red Blood Count 2.65 MIL/MM3 2.40 MIL/MM3 (4.00-5.30) (4.00-5.30) Hemoglobin 8.6 GM/DL 7.9 GM/DL (11.6-15.3) (11.6-15.3) Hematocrit 25.4 % 23.1 % (35.0-46.0) (35.0-46.0) Chloride Level 108 MEQ/L 110 MEQ/L (98-107) (98-107) Blood Urea Nitrogen 27 MG/DL (7-18) 23 MG/DL (7-18) Estimat Glomerular Filtration 63 ML/MIN (>89) 79 ML/MIN (>89) Rate Random Glucose 168 MG/DL (74-106) Calcium Level 7.7 MG/DL 7.6 MG/DL (8.5-10.1) (8.5-10.1) Platelet Count 138 TH/MM3 (150-450) Imaging Last Impressions Hip and Pelvis X-Ray 06/01/16 1008 Signed Impressions: Service Date/Time: Wednesday, June 01, 2016 11:11 - CONCLUSION: Comminuted intratrochanteric fracture of the left hip. Gary Salamanca MD Hip X-Ray 06/01/16 0000 Signed Impressions: Service Date/Time: Wednesday, June 01, 2016 22:25 - CONCLUSION: Anatomic alignment. Fernando Mccullough MD FACR Head CT 06/01/16 0000 Signed Impressions: Service Date/Time: Wednesday, June 01, 2016 14:44 - CONCLUSION: No evidence of acute infarct, hemorrhage, mass or edema. Intact calvarium. Tony Ren MD Chest X-Ray 06/01/16 0000 Signed Impressions: Service Date/Time: Wednesday, June 01, 2016 11:27 - CONCLUSION: 1. No acute cardiopulmonary process to explain current clinical symptoms. 2. Severe degenerative changes in both shoulders with degenerative spurring in the mid dorsal spine. Gary Salamanca MD PE at Discharge Physical Exam Physical Exam PHYSICAL EXAMINATION GENERAL: This is a thin, frail female who appears to be in no acute distress. She is more responsive today and answer simple questions. HEAD: Normocephalic without any lesion or mass noted. Facial features appear symmetric. OROPHARYNGEAL: Oropharynx without erythema or edema, dry. NECK: Supple. No nuchal rigidity or lymphadenopathy. Trachea midline without deviation. CARDIAC: Regular rhythm, regular rate, S1 and S2 are heard. Murmur no gallops or rubs. LUNGS: Clear to auscultation bilaterally. No wheeze, No rhonchi or rales. No use of accessory muscles on inspiration or expiration. ABDOMEN: flat, Soft, nontender, no organomegaly or masses. Bowel sounds are heard in all four quadrants. No rebound. No guarding. EXTREMITIES: No edema. Pulses equal bilateral. No cyanosis. Lt hip small dressing CDI. Small quarter size amount of breakthrough bleeding note. Minimal edema noted. NEUROLOGICAL: patient mood and affect flat. No focal deficit SKIN:Warm and moist, pale, dry Objective Remarks I'm feeling better today. Transfer Summary To SNF Hospital Course On initial presentation, patient was noted with blood pressure of 80 systolic, there was no reported fever, no chest pain, shortness of breath. She had not received any pain medication per EMS. Patient is on Coreg, clonidine, hydralazine, hydrochlorothiazide, lisinopril. Laboratory workup completed was essentially unremarkable, H&H was stable, hemoglobin of 10.6 hematocrit 30.8. BMP remarkable for mild renal insufficiency, creatinine 1.17. Glucose was elevated, 266. UA completed without any evidence of infection. Chest x-ray did not show any infiltrates. CT of the head was negative. Hip and pelvis x- ray showed comminuted intertrochanteric fracture left hip.75-year-old elderly female admitted from intermediate, had recent fall, brought to the emergency room and was found with common noted proximal left femur fracture. History of osteoporosis. -s/p Close reduction with trochanteric nail fixation left proximal femur fracture was repaired 06/01 -Orthopedic consultation and assisted and plan a care regarding her fracture -Post op ortho care unremarkable. -Pain management during postop phase without any incidents. -Lovenox 40 mg SQ for DVT prophylaxis Complications of Levels due to probable blood loss. Since labs were monitored medications were reconciled except some of her BP meds. Patient's blood pressure is now returning to upper limits above from the norm. Discharge summary please will be pretty reconciled for her transfer. . Pt Condition on Discharge: Stable Discharge Disposition: Discharge to SNF Discharge Instructions DIET: Follow Instructions for: As Tolerated, No Restrictions Activities you can perform: Weight Bearing as [place] Activities to Avoid: Prolonged Standing Other Activity Instructions: Per orthopedic instructions postop. Additional Information Patient already has equipment needed at SNF. This information was discussed with Dr. Johnson who is going to complete the reconciliation of meds. Information was discussed with patient, watch caser, and RN. Shiela Baker Jun 04, 2016 12:20
[2016-06-04] MEDS ORDERED: ENOX40P SQ (12:41)
[2016-06-04] MEDS: hydrALAZINE HCL 100 MG TAB PO SCH ×2 (13:00→18:28)
[2016-06-04] MEDS ORDERED: PERC5TAB12 PO (13:05)
[2016-06-04] MEDS: LISINOPRIL 20 MG TAB PO SCH (13:16)
[2016-06-04] MEDS ORDERED: PANTOPRAZOLE SODIUM 40 MG VIAL IV PUSH SCH (20:00)
[2016-06-04] MEDS: SODIUM CHLOR 0.9% 1000 ML INJ 1,000 ML IV SCH (20:17)
[2016-06-04 21:34] LABS: HEMATOCRIT 25.1 % (35.0-46.0); REVIEW FLAG FINAL
[2016-06-04] MEDS: PHENYTOIN SODIUM 100 MG CAP PO SCH (21:48)
[2016-06-04] MEDS: ATORVASTATIN 40 MG TAB PO SCH (21:48)
[2016-06-04] MEDS: cloNIDine HCL 0.1 MG TAB PO SCH (21:49)
[2016-06-04] MEDS: MIRTAZAPINE 15 MG TAB PO SCH (21:49)
[2016-06-05] MEDS: ACETAMINOPHEN/HYDROcodone 325 MG/5 MG TAB PO PRN ×5 (00:04→21:39)
[2016-06-05] MEDS: LACTATED RINGER'S 1000 ML INJ 1,000 ML IV SCH ×2 (03:12→14:24)
[2016-06-05 06:01] LABS: HEMATOCRIT 27.7 % (35.0-46.0); MEAN CELL VOLUME 93.4 FL (80.0-100.0); MEAN CORPUSCULAR HEMOGLOBIN 32.1 PG (27.0-34.0); MEAN CORPUSCULAR HGB CONC 34.4 % (32.0-36.0); PLATELET COUNT 188 TH/MM3 (150-450); RED BLOOD COUNT 2.97 MIL/MM3 (4.00-5.30); RED CELL DISTRIBUTION WIDTH 14.9 % (11.6-17.2); REVIEW FLAG FINAL; WHITE BLOOD COUNT 5.6 TH/MM3 (4.0-11.0)
[2016-06-05] MEDS: INSULIN ASPART SUPPLEMENTAL SCALE SQ SCH ×4 (07:00→21:38)
[2016-06-05] MEDS: PANTOPRAZOLE SOD 40 MG DELAYED RELEASE TAB PO SCH (07:54)
[2016-06-05] MEDS: ESCITALOPRAM OXALATE 20 MG TAB PO SCH (07:54)
[2016-06-05] MEDS: MULTIVITAMINS/MINERALS THERAPEUTIC TAB PO SCH ×2 (07:54→21:38)
[2016-06-05] MEDS: LISINOPRIL 20 MG TAB PO SCH (07:54)
[2016-06-05] MEDS: levETIRAcetam 500 MG TAB PO SCH ×2 (07:54→21:38)
[2016-06-05] MEDS: CARVEDILOL 3.125 MG TAB PO SCH ×2 (07:55→21:38)
[2016-06-05] MEDS: ARTIFICIAL TEARS OPTH SOLN 15 ML BTL EACH EYE SCH ×3 (07:55→20:01)
[2016-06-05] MEDS: cloNIDine HCL 0.1 MG TAB PO SCH ×2 (07:55→21:38)
[2016-06-05] MEDS: SODIUM CHLORIDE 0.9% FLUSH 5 ML FLUSH IVF SCH ×2 (07:56→21:39)
[2016-06-05] MEDS: SODIUM CHLOR 0.9% 1000 ML INJ 1,000 ML IV SCH ×2 (07:57→15:00)
[2016-06-05 08:00] VITALS: BP 99/44; PULSE 76; RESP 17; TEMP 97.6; O2SAT 95
[2016-06-05] MEDS: hydrALAZINE HCL 100 MG TAB PO SCH ×3 (08:01→17:41)
--- NOTE | 2016-06-05 10:59 | HHI.PR ---
Subjective History of Present Illness pt reportedly had dark blackish stool just prior to d/c raising concerns about GI bleed d/c was with held stool was sent for occult blood lovenox was with held H/H was monitored GI was consulted resting comfortably in bed No more BM since yesterday No abd pain No rectal pain/ tenesmus no fever or chills Hip pain is ok offers no other c/o Vitals/Results Intake & Output 06/04/16 06/04/16 06/05/16 15:00 23:00 07:00 Intake Total 960 ml 350 ml Balance 960 ml 350 ml Intake Oral 960 ml 350 ml # Voids 6 3 # Bowel Movements 1 0 Vital Signs Vital Signs Date Time Temp Pulse Resp B/P Pulse Ox O2 Delivery O2 Flow Rate FiO2 06/05/16 08:00 97.6 76 17 99/44 95 06/04/16 23:41 98.5 59 18 119/41 94 06/04/16 19:00 99.2 81 16 120/53 92 06/04/16 16:00 98.1 68 18 119/47 96 06/04/16 11:05 96.2 63 17 166/81 93 CBC/BMP: 06/05/16 0536 06/03/16 0409 Lab Results Laboratory Tests Test 06/04/16 06/05/16 20:47 05:36 Hemoglobin 8.6 GM/DL 9.5 GM/DL Hematocrit 25.1 % 27.7 % White Blood Count 5.6 TH/MM3 Red Blood Count 2.97 MIL/MM3 Mean Corpuscular Volume 93.4 FL Mean Corpuscular Hemoglobin 32.1 PG Mean Corpuscular Hemoglobin 34.4 % Concent Red Cell Distribution Width 14.9 % Platelet Count 188 TH/MM3 Mean Platelet Volume 8.1 FL Microbiology Microbiology 06/04/16 Stool Occult Blood (SUNIL) - Final, Complete HEMOCCULT NEGATIVE Physical Exam General General Appearance: No Acute Distress, Comfortable Eyes Eye Exam: Sclera White, Extraocular Movement Intact Ears & Nose Ears & Nose Exam: Nasal Mucosa Premont Throat Throat Exam: Oral Mucosa [place] & Moist Neck Neck Exam: Neck Supple, Trachea Midline Pulmonary Resp Exam: Clear Bilaterally, Breath Sounds Equal Cardiology CV Exam: Regular, Normal Sinus Rhythm Gastrointestinal/Abdomen GI Exam: Soft, Non-Tender, Bowel Sounds Present Musculoskeletal MS Remarks Left hip dressing intact Integumentary Skin Exam: Warm, Dry Extremeties Extremities Exam: No Edema Neurologic Neuro Exam: Alert, Awake, Speech Clear, Moving All Extremities PUD Prophylasis PUD Prophylaxis: Protonix Assessment/Plan Problem List: (1) Intertrochanteric fracture of left femur (2) Hip fracture (3) Hx of iron deficiency (4) Diabetes (5) COPD (chronic obstructive pulmonary disease) (6) Osteoporosis (7) History of CVA (cerebrovascular accident) (8) Upper GI bleed Assessment/Plan s/p hip surgery post op care per ortho analgesic wound care PT DVT prophylaxis , sq lovenox was withheld repeat H./H stable PPI Hx of jejunal AVM , needs AC for dvt prophylaxis also at ik of severe bleeding d/t AVM , will d/w GI GI consult awaited BP control,BB/CCB/ Keppra antidepressants d/w PT d/w RN will hold d/c at this time will f/u Problem Qualifiers (1) Hip fracture: Qualified Code: S72.002A - Hip fracture, left, closed, initial encounter (2) Diabetes: Qualified Code: E11.8 - Type 2 diabetes mellitus with complication, unspecified care home insulin use status (3) COPD (chronic obstructive pulmonary disease): Qualified Code: J44.9 - Chronic obstructive pulmonary disease, unspecified COPD type Tabby Johnson MD Jun 05, 2016 10:58
[2016-06-05 12:00] VITALS: BP 137/51; PULSE 70; RESP 17; TEMP 97.8; O2SAT 92
[2016-06-05 12:58] LABS: HEMATOCRIT 28.7 % (35.0-46.0); REVIEW FLAG FINAL
[2016-06-05 16:00] VITALS: BP 149/64; PULSE 72; RESP 18; TEMP 97.8; O2SAT 95
--- NOTE | 2016-06-05 17:10 | PD.CONS ---
HPI History of Present Illness This is a 75 year old female patient who is currently hospitalized for a intertrochanteric fracture of the left femur. She underwent closed reduction with trochanteric nail fixation on 06/01/16 with ortho. Post operatively she was started on lovenox. She has been receiving physical therapy and case management was preparing for her discharge when she was noted to have lack tarry stools earlier this morning. 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 She was evaluated with small bowel enteroscopy with control of bleeding (03/10/16) revealed active bleeding jejunal avm, s/p treatment, apc, clips, epinephrine no further bleeding, two avm 's in jejunum with no active bleeding, s/p apc. Consider repeat enteroscopy vs. referral tertiary center for double balloon enteroscopy. Colonoscopy (03/10) revealed diverticulosis in the sigmoid and descending colon, no active bleeding, stool in the cecum. She also had a capsule endoscopy (01/31/16), although I am unable to pull up this record. The patient denies any nausea, vomiting, abdominal pain. She reports that her appetite is good and she is eating well. She has not seen any obvious bleeding. She denies any red blood mixed within her stool. She d did not notice the black tarry stool although this was visualized by the nurse. Her Lovenox was stopped and GI was consulted for further evaluation given her history of GI bleeding. (Vashti Aparicio) PFSH Past Medical History Carotid stenosis Diabetes Hypertension ICH Seizure disorder Anxiety Atherosclerotic heart disease Hyperlipidemia CAD/SD Compression fx L3 GIB Duodenal AVM Anemia Past Surgical History EGD/Enteroscopy/colonoscopy Right carotid endarterectomy Right femoral artery arthrectomy/angioplasty Cataract surgery (Vashti Aparicio) Coded Allergies: No Known Allergies (Verified , 06/01/16) Medications Allergies Coded Allergies Type Severity Reaction Last Updated Verified No Known Allergies 06/01/16 Yes Active Scripts Medications Dose Route/Sig Days Date Category Dose Instructions Percocet (Oxycodone-Acetaminophen) 5-325 mg Tab 1-2 Tab PO Q6H PRN 06/04/16 Reported Lovenox Inj (Enoxaparin Sodium) 40 Mg/0.4 Ml Syr 40 Mg SQ Q24H 06/04/16 Rx Mirtazapine 15 Mg Tab 15 Mg PO HS 06/01/16 Reported Furosemide 20 Mg Tab 20 Mg PO DAILY 06/01/16 Reported Escitalopram (Escitalopram Oxalate) 20 Mg Tab 20 Mg PO DAILY 06/01/16 Reported Humalog Inj (Insulin Human Lispro) 1,000 Unit/10 Ml Vial 1-9 Units SQ ACHS 06/01/16 Reported Max dose at bedtime:( )units; sugars< 70,(0)units ; sugars 150-199,(1)unit; sugars 200-249,(3)units; sugars 250-299,(5)units; sugars 300-349,(7)units; sugars more than 349,(9)units. Fleet Enema Rectal (Sodium Phosphates Rectal) 7-19 Gm/118 Ml Enem 1 Each RECTAL DIRECTED PRN 03/14/16 Reported If no results from Dulcolax within 48hrs Bisacodyl Supp (Bisacodyl) 10 Mg Supp 10 Mg RECTAL DAILY PRN 03/14/16 Reported If no results from MOM Maalox Max Liq (Kcpjiuhv-Yttuolfpj-Tkqkqnvjrzi Liq) 400-400-40 Mg/5 Ml Susp 30 Ml PO Q4HR PRN 03/14/16 Reported Take between meals or as directed. Shake well. Maximum 60 ml/24 hrs. Milk of Magnesia Liq (Magnesium Hydroxide) 400 Mg/5 Ml Susp 30 Ml PO Q4HR PRN 03/14/16 Reported Soothe Xp/Xtra Protection (Artificial Tear Solution) 1 Hansel Hansel 1 Drop EACH EYE TID 03/14/16 Reported Procrit Inj (Epoetin Asael) 10,000 Unit/Ml Inj 5,000 Units SQ WEEKLY 03/14/16 Reported Hold if HGB over 11. Myrbetriq (Mirabegron) 50 Mg Tab 50 Mg PO HS 03/14/16 Reported Keppra (Levetiracetam) 750 Mg Tab 1,500 Mg PO BID 03/14/16 Reported Iron (Ferrous Sulfate) 325 Mg Tab 325 Mg PO TID 03/14/16 Reported Dilantin (Phenytoin Extended) 100 Mg Cap 200 Mg PO HS 03/14/16 Reported Levemir Inj (Insulin Detemir) 1,000 unit/ 10 ML Vial 8 Units SQ HS 03/14/16 Reported Do not mix with any other Insulin. Prinivil (Lisinopril) 20 Mg Tab 40 Mg PO DAILY 03/14/16 Reported Isosorbide Dinitrate 30 Mg Tab 60 Mg PO BID 03/14/16 Reported Hydralazine (Hydralazine HCl) 100 Mg Tab 100 Mg PO TID 03/14/16 Reported Take with meals Catapres (Clonidine) 0.1 Mg Tab 0.1 Mg PO BID 03/14/16 Reported Coreg (Carvedilol) 3.125 Mg Tab 3.125 Mg PO BID 03/14/16 Reported Caltrate 600+D Plus Mosaic Floor Layer 600-800 mg-Unit (Calcium Carbonate-Vitamin D W/) 1 Tab Tab 1 Tab PO TID 03/14/16 Reported Atorvastatin (Atorvastatin Calcium) 40 Mg Tab 40 Mg PO HS 03/14/16 Reported Amlodipine (Amlodipine Besylate) 10 Mg Tab 10 Mg PO DAILY 03/14/16 Reported Protonix (Pantoprazole Sodium) 40 Mg Tab 40 Mg PO DAILY 03/14/16 Reported Family History Mother from CVA. Social History [place] Denies alcohol, drug use or smoking (Vashti Aparicio) Review of Systems Constitutional: COMPLAINS OF: Fatigue, DENIES: Weight loss Respiratory: DENIES: Cough Cardiovascular: DENIES: Chest pain Gastrointestinal: COMPLAINS OF: Black stools, DENIES: Abdominal pain, Bloody stools, Constipation, Diarrhea, Nausea, Vomiting, Anorexia, Swelling of Abdomen , Heartburn, Hematemesis Musculoskeletal: COMPLAINS OF: Joint pain Integumentary: DENIES: Abnormal pigmentation Neurologic: DENIES: Headache Psychiatric: DENIES: Confusion (Vashti Aparicio) GI Exam Vitals I&O Vital Signs Date Time Temp Pulse Resp B/P Pulse Ox O2 Delivery O2 Flow Rate FiO2 06/05/16 12:00 97.8 70 17 137/51 92 06/05/16 08:00 97.6 76 17 99/44 95 06/04/16 23:41 98.5 59 18 119/41 94 06/04/16 19:00 99.2 81 16 120/53 92 I/O 06/04/16 06/04/16 06/04/16 06/05/16 06/05/16 06/05/16 07:00 15:00 23:00 07:00 15:00 23:00 Intake Total 120 ml 960 ml 350 ml Output Total 2 ml Balance 118 ml 960 ml 350 ml Intake Oral 120 ml 960 ml 350 ml Output Urine Total 2 ml # Voids 6 3 # Bowel Movements 0 1 0 Imaging Last Impressions Hip and Pelvis X-Ray 06/01/16 1008 Signed Impressions: Service Date/Time: Wednesday, June 01, 2016 11:11 - CONCLUSION: Comminuted intratrochanteric fracture of the left hip. Gary Salamanca MD Hip X-Ray 06/01/16 0000 Signed Impressions: Service Date/Time: Wednesday, June 01, 2016 22:25 - CONCLUSION: Anatomic alignment. Fernando Mccullough MD FACR Head CT 06/01/16 0000 Signed Impressions: Service Date/Time: Wednesday, June 01, 2016 14:44 - CONCLUSION: No evidence of acute infarct, hemorrhage, mass or edema. Intact calvarium. Tony Ren MD Chest X-Ray 06/01/16 0000 Signed Impressions: Service Date/Time: Wednesday, June 01, 2016 11:27 - CONCLUSION: 1. No acute cardiopulmonary process to explain current clinical symptoms. 2. Severe degenerative changes in both shoulders with degenerative spurring in the mid dorsal spine. Gary Salamanca MD Laboratory Test 06/04/16 06/05/16 06/05/16 20:47 05:36 12:42 Hemoglobin 8.6 GM/DL 9.5 GM/DL 9.6 GM/DL Hematocrit 25.1 % 27.7 % 28.7 % White Blood Count 5.6 TH/MM3 Red Blood Count 2.97 MIL/MM3 Mean Corpuscular Volume 93.4 FL Mean Corpuscular Hemoglobin 32.1 PG Mean Corpuscular Hemoglobin 34.4 % Concent Red Cell Distribution Width 14.9 % Platelet Count 188 TH/MM3 Mean Platelet Volume 8.1 FL Date/Time Procedure Status Source Growth 06/04/16 18:45 Stool Occult Blood (SUNIL) - Final Complete Stool Stool HEMOCCULT NEGATIVE Physical Examination HEENT: Normocephalic; atraumatic; no jaundice. CHEST: CTA CARDIAC: RRR ABDOMEN: Soft, nondistended, nontender; no hepatosplenomegaly; bowel sounds are present in all four quadrants. EXTREMITIES: Decreased ROM LLE SKIN: Normal; no rash; no jaundice. [employer] OPERATOR: No focal deficits; alert and oriented times three. (Vashti Aparicio) Assessment and Plan Plan ASSESSMENT: - Melena. Pt with a hx of jejunal AVMs and has been on lovenox for DVT proph. following surgery for left intertrochanteric fracture of the left femur. Small bowel enteroscopy with control of bleeding (03/10/16) revealed active bleeding jejunal avm, s/p treatment, apc, clips, epinephrine no further bleeding, two avm's in jejunum with no active bleeding, s/p apc. Consider repeat enteroscopy vs. referral tertiary center for double balloon enteroscopy. Colonoscopy (03/10/16) revealed diverticulosis in the sigmoid and descending colon, no active bleeding, stool in the cecum. She also had a capsule endoscopy (01/31/16), although I am unable to pull up this record. The patient denies any nausea, vomiting, abdominal pain. She was being prepared for d/c when she had a melanotic stool. Lovenox was stopped. GI was consulted. HH 9.6/28.7. Protonix. - Anemia. HH 9.6/28.7. - Recent intertrochanteric fracture of the left femur. S/P closed reduction with trochanteric nail fixation on 06/01/16 with ortho. PLAN: - Plan for enteroscopy on tuesday - Obtain consents - NPO after MN Tuesday - Increase PPI to bid dosing - Monitor HH - Transfuse as necessary - Hold lovenox - Supportive care - Further recommendations to follow based on results of above - Pt seen and examined by Dr. Trujillo and myself and this note is written on his behalf (Vashti Aparicio) Physician Comments Seen and examined with Ms. Markus OTT, consulted for rectal bleeding /melena. Pt. denies any gi bleeding. Very upset that her dc to [place] has been delayed due to bleeding. Enteroscopy planned for tuesday. Monitor labs. Will follow, thank you (Elder Trujillo MD) Vashti Aparicio Jun 05, 2016 17:10 Elder Trujillo MD Jun 05, 2016 18:59
[2016-06-05 18:02] LABS: HEMATOCRIT 27.7 % (35.0-46.0); REVIEW FLAG FINAL
[2016-06-05 20:00] VITALS: BP 123/63; PULSE 73; RESP 20; TEMP 99; O2SAT 93
[2016-06-05] MEDS: PHENYTOIN SODIUM 100 MG CAP PO SCH (21:38)
[2016-06-05] MEDS: ATORVASTATIN 40 MG TAB PO SCH (21:38)
[2016-06-05] MEDS: MIRTAZAPINE 15 MG TAB PO SCH (21:38)
[2016-06-05] MEDS: PANTOPRAZOLE SODIUM 40 MG VIAL IV PUSH SCH (21:39)
[2016-06-05] MEDS: MAGNESIUM HYDROXIDE SUSP 30 ML CUP PO PRN (21:44)
[2016-06-05 23:36] LABS: HEMATOCRIT 22.6 % (35.0-46.0); REVIEW FLAG FINAL
[2016-06-06] VITALS: BP 155/62; PULSE 68; RESP 20; TEMP 98.2; O2SAT 98
[2016-06-06] MEDS: SODIUM CHLOR 0.9% 1000 ML INJ 1,000 ML IV SCH ×3 (00:11→20:33)
[2016-06-06] MEDS: LACTATED RINGER'S 1000 ML INJ 1,000 ML IV SCH ×2 (00:54→07:09)
[2016-06-06 04:00] VITALS: BP 173/66; PULSE 56; RESP 20; TEMP 97; O2SAT 95
[2016-06-06 05:31] LABS: HEMATOCRIT 25.2 % (35.0-46.0); MEAN CELL VOLUME 91.7 FL (80.0-100.0); MEAN CORPUSCULAR HGB CONC 34.9 % (32.0-36.0); PLATELET COUNT 197 TH/MM3 (150-450); RED BLOOD COUNT 2.75 MIL/MM3 (4.00-5.30); RED CELL DISTRIBUTION WIDTH 14.8 % (11.6-17.2); REVIEW FLAG FINAL; WHITE BLOOD COUNT 4.4 TH/MM3 (4.0-11.0)
[2016-06-06 05:51] LABS: BICARBONATE 25.8 MEQ/L (21.0-32.0); POTASSIUM 3.7 MEQ/L (3.5-5.1)
[2016-06-06] MEDS: INSULIN ASPART SUPPLEMENTAL SCALE SQ SCH ×4 (06:15→20:41)
[2016-06-06 08:00] VITALS: BP 132/81; PULSE 86; RESP 17; TEMP 98.5; O2SAT 95
[2016-06-06] MEDS: cloNIDine HCL 0.1 MG TAB PO SCH ×2 (08:11→20:30)
[2016-06-06] MEDS: levETIRAcetam 500 MG TAB PO SCH ×2 (08:11→20:30)
[2016-06-06] MEDS: hydrALAZINE HCL 100 MG TAB PO SCH ×3 (08:11→15:49)
[2016-06-06] MEDS: ESCITALOPRAM OXALATE 20 MG TAB PO SCH (08:11)
[2016-06-06] MEDS: CARVEDILOL 3.125 MG TAB PO SCH ×2 (08:11→20:29)
[2016-06-06] MEDS: LISINOPRIL 20 MG TAB PO SCH (08:11)
[2016-06-06] MEDS: MULTIVITAMINS/MINERALS THERAPEUTIC TAB PO SCH ×2 (08:11→20:29)
[2016-06-06] MEDS: MAGNESIUM HYDROXIDE SUSP 30 ML CUP PO PRN (08:12)
[2016-06-06] MEDS: ACETAMINOPHEN/HYDROcodone 325 MG/5 MG TAB PO PRN ×4 (08:12→20:28)
[2016-06-06] MEDS: PANTOPRAZOLE SODIUM 40 MG VIAL IV PUSH SCH ×2 (08:14→20:33)
[2016-06-06] MEDS: SODIUM CHLORIDE 0.9% FLUSH 5 ML FLUSH IVF SCH ×2 (08:17→20:33)
[2016-06-06] MEDS: ARTIFICIAL TEARS OPTH SOLN 15 ML BTL EACH EYE SCH ×3 (08:17→15:50)
--- NOTE | 2016-06-06 09:54 | HHI.PR ---
Subjective History of Present Illness constipation/MOM today No further GI bleeding noted. occational hip pain No nausea/vomiting No H/A Hospital Day: 5 Subjective Remarks Im ok I guess. I wanta go back to my home. (Shiela Baker) Review of Systems Constitutional Constitutional: Weakness (Shiela Baker) Integumentary Skin: Wounds Skin Remarks lt hip incision CDI, with dressing secure. (Shiela Baker) Psychiatric Psychiatric: Agitation (easily agitated.) (Shiela Baker) Vitals/Results Intake & Output 06/05/16 06/05/16 06/06/16 15:00 23:00 07:00 Intake Total 720 ml 380 ml 380 ml Balance 720 ml 380 ml 380 ml Intake Oral 720 ml 380 ml 380 ml # Voids 3 3 3 # Bowel Movements 0 0 0 Vital Signs Vital Signs Date Time Temp Pulse Resp B/P Pulse Ox O2 Delivery O2 Flow Rate FiO2 06/06/16 08:08 Room Air 06/06/16 08:00 98.5 86 17 132/81 95 06/06/16 04:00 97.0 56 20 173/66 95 06/06/16 00:00 98.2 68 20 155/62 98 06/05/16 20:00 99.0 73 20 123/63 93 06/05/16 16:00 97.8 72 18 149/64 95 06/05/16 12:00 97.8 70 17 137/51 92 (Shiela Baker) CBC/BMP: 06/06/16 0515 06/06/16 0515 Lab Results Active Medications Pantoprazole Sodium (Protonix Inj) 40 mg BID IV PUSH Last administered on t 08:14; Admin Dose 40 MG; Start 06/05/16 at 21:00 Laboratory Tests Test 06/05/16 06/05/16 06/05/16 06/06/16 12:42 17:54 23:12 05:15 Hemoglobin 9.6 GM/DL 9.6 GM/DL 7.9 GM/DL 8.8 GM/DL Hematocrit 28.7 % 27.7 % 22.6 % 25.2 % White Blood Count 4.4 TH/MM3 Red Blood Count 2.75 MIL/MM3 Mean Corpuscular Volume 91.7 FL Mean Corpuscular Hemoglobin 32.0 PG Mean Corpuscular Hemoglobin 34.9 % Concent Red Cell Distribution Width 14.8 % Platelet Count 197 TH/MM3 Mean Platelet Volume 7.8 FL Sodium Level 143 MEQ/L Potassium Level 3.7 MEQ/L Chloride Level 109 MEQ/L Carbon Dioxide Level 25.8 MEQ/L Anion Gap 8 MEQ/L Blood Urea Nitrogen 18 MG/DL Creatinine 0.53 MG/DL Estimat Glomerular Filtration 113 ML/MIN Rate Random Glucose 98 MG/DL Calcium Level 7.7 MG/DL Microbiology Imaging Remarks Last Impressions Hip and Pelvis X-Ray 06/01/16 1008 Signed Impressions: Service Date/Time: Wednesday, June 01, 2016 11:11 - CONCLUSION: Comminuted intratrochanteric fracture of the left hip. Gary Salamanca MD Hip X-Ray 06/01/16 0000 Signed Impressions: Service Date/Time: Wednesday, June 01, 2016 22:25 - CONCLUSION: Anatomic alignment. Fernando Mccullough MD FACR Head CT 06/01/16 0000 Signed Impressions: Service Date/Time: Wednesday, June 01, 2016 14:44 - CONCLUSION: No evidence of acute infarct, hemorrhage, mass or edema. Intact calvarium. Tony Ren MD Chest X-Ray 06/01/16 0000 Signed Impressions: Service Date/Time: Wednesday, June 01, 2016 11:27 - CONCLUSION: 1. No acute cardiopulmonary process to explain current clinical symptoms. 2. Severe degenerative changes in both shoulders with degenerative spurring in the mid dorsal spine. Gary Salamanca MD Current Medications Active Medications Pantoprazole Sodium (Protonix Inj) 40 mg BID IV PUSH Last administered on t 08:14; Admin Dose 40 MG; Start 06/05/16 at 21:00 (Shiela Baker) Physical Exam General General Appearance: No Acute Distress, Comfortable (Shiela Baker) Eyes Eye Exam: Pupils Equal, Pupils Reactive, Sclera White, Extraocular Movement Intact (Shiela Baker) Ears & Nose Ears & Nose Exam: Nasal Mucosa [place] (Shiela Baker) Throat Throat Exam: Oral Mucosa [place] & Moist (Shiela Baker) Neck Neck Exam: Neck Supple, Trachea Midline (Shiela Baker) Pulmonary Resp Exam: Clear Bilaterally, Breath Sounds Equal (Shiela Baker) Cardiology CV Exam: Regular, Normal Sinus Rhythm (Shiela Baker) Gastrointestinal/Abdomen GI Exam: Soft, Non-Tender, Bowel Sounds Present GI Remarks MOM given today (Shiela Baker) Integumentary Skin Exam: Warm, Dry Skin Remarks Lt hip incision with thin dressing CDI. (Shiela Baker) Extremeties Extremities Exam: No Edema (Shiela Baker) Neurologic Neuro Exam: Alert, Awake, Speech Clear, Moving All Extremities (Shiela Baker) PUD Prophylasis PUD Prophylaxis: Protonix (Shiela Baker) Assessment/Plan Problem List: (1) Intertrochanteric fracture of left femur (2) Hip fracture (3) Hx of iron deficiency (4) Diabetes (5) COPD (chronic obstructive pulmonary disease) (6) Osteoporosis (7) History of CVA (cerebrovascular accident) (8) Upper GI bleed Plan: s/p hip surgery post op care per ortho pain management wound care PT GI consult, appreciate input. Enteroscopy Tuesday am. NPO at midnight. DVT prophylaxis , sq lovenox was withheld PPI to BID Hx of jejunal AVM , needs AC for dvt prophylaxis also at rust of severe bleeding d/t AVM , will d/w GI Labs am, BMP, CBC BP control,BB/CCB/ Keppra antidepressants d/w PT d/w RN will hold d/c at this time will f/u D/W Dr. Johnson Jun 05, 2016 10:58 Assessment/Plan (Shiela Baker) Assessment/Plan pt is seen & examined d/w PT , she is refusing EGD/Enteroscopy as rec by GI I am ok /I am not bleeding Hip pain is ok d/w Dr lloyd , ok to resume sq lovenox clear for d/c , no evid of active bleeding medically stable see MRS see HRS form f/u pcp f/u ortho/GI d/w SW (Tabby Johnson MD) Problem Qualifiers (1) Hip fracture: Qualified Code: S72.002A - Hip fracture, left, closed, initial encounter (2) Diabetes: Qualified Code: E11.8 - Type 2 diabetes mellitus with complication, unspecified penitentiary insulin use status (3) COPD (chronic obstructive pulmonary disease): Qualified Code: J44.9 - Chronic obstructive pulmonary disease, unspecified COPD type Shiela Baker Jun 06, 2016 09:54 Tabby Johnson MD Jun 06, 2016 15:10 Problem Qualifiers (1) Hip fracture: Qualified Code: S72.002A - Hip fracture, left, closed, initial encounter (2) Diabetes: Qualified Code: E11.8 - Type 2 diabetes mellitus with complication, unspecified penitentiary insulin use status (3) COPD (chronic obstructive pulmonary disease): Qualified Code: J44.9 - Chronic obstructive pulmonary disease, unspecified COPD type Shiela Baker Jun 06, 2016 09:54
[2016-06-06 12:00] VITALS: BP 104/44; PULSE 54; RESP 18; TEMP 97.9; O2SAT 97
[2016-06-06 15:53] VITALS: BP 116/50; PULSE 69; RESP 18; TEMP 96.9; O2SAT 94
[2016-06-06 19:00] VITALS: BP 117/63; PULSE 76; RESP 17; TEMP 97.2; O2SAT 99
[2016-06-06] MEDS: ATORVASTATIN 40 MG TAB PO SCH (20:29)
[2016-06-06] MEDS: PHENYTOIN SODIUM 100 MG CAP PO SCH (20:30)
[2016-06-06] MEDS: MIRTAZAPINE 15 MG TAB PO SCH (20:32)
[2016-06-07 00:50] VITALS: BP 149/69; PULSE 57; RESP 17; TEMP 97.1; O2SAT 95
[2016-06-07] MEDS: ACETAMINOPHEN/HYDROcodone 325 MG/5 MG TAB PO PRN ×3 (03:19→12:11)
[2016-06-07] MEDS: SODIUM CHLOR 0.9% 1000 ML INJ 1,000 ML IV SCH (07:00)
[2016-06-07] MEDS: INSULIN ASPART SUPPLEMENTAL SCALE SQ SCH ×2 (07:00→11:00)
--- NOTE | 2016-06-07 07:39 | PD.ORT.PN ---
Subjective Post Op Day #: 6 Subjective Remarks Pt laying comfortably in bed, answering questions appropriately at this time. She admits her pain in left hip is controlled well. No other complaints noted. Pt EILEEN is long time friend. Objective Vitals Vital Signs Date Time Temp Pulse Resp B/P Pulse Ox O2 Delivery O2 Flow Rate FiO2 06/07/16 00:50 97.1 57 17 149/69 95 06/06/16 19:00 97.2 76 17 117/63 99 06/06/16 19:00 97.2 76 06/06/16 17:51 Room Air 06/06/16 15:58 Room Air 06/06/16 15:53 96.9 69 18 116/50 94 06/06/16 12:00 97.9 54 18 104/44 97 06/06/16 11:15 Room Air 06/06/16 08:08 Room Air 06/06/16 08:00 98.5 86 17 132/81 95 I/O 06/06/16 06/06/16 06/06/16 06/07/16 06/07/16 06/07/16 07:00 15:00 23:00 07:00 15:00 23:00 Intake Total 380 ml 960 ml 480 ml 480 ml Balance 380 ml 960 ml 480 ml 480 ml Intake Oral 380 ml 960 ml 480 ml 480 ml # Voids 3 4 3 3 # Bowel Movements 0 1 0 0 Result Diagram: 06/06/16 0515 06/06/16 0515 Imaging Last 48 hours Impressions Hip and Pelvis X-Ray 06/01/16 1008 Signed Impressions: Service Date/Time: Wednesday, June 01, 2016 11:11 - CONCLUSION: Comminuted intratrochanteric fracture of the left hip. Gary Salamanca MD Head CT 06/01/16 0000 Signed Impressions: Service Date/Time: Wednesday, June 01, 2016 14:44 - CONCLUSION: No evidence of acute infarct, hemorrhage, mass or edema. Intact calvarium. Tony Ren MD Chest X-Ray 06/01/16 0000 Signed Impressions: Service Date/Time: Wednesday, June 01, 2016 11:27 - CONCLUSION: 1. No acute cardiopulmonary process to explain current clinical symptoms. 2. Severe degenerative changes in both shoulders with degenerative spurring in the mid dorsal spine. Gary Salamanca MD Procedures Close reduction with trochanteric nail fixation left proximal femur fracture - Objective Remarks LLE: Incision is clean and dry. Extremity is warm. Mild swelling and tenderness to palpation over incision site. Good motion of ankle and toes. No calf pain. Negative Homans sign. Good cap refill. Sensation intact. 2+ pedal pulses. Neurovascular intact. 2 new possible scratch [place] noted anterior to dressing - spoke to RN. Assessment & Plan Ortho Post Op Day #: 6 Problem List: (1) Intertrochanteric fracture of left hip (2) COPD (chronic obstructive pulmonary disease) (3) Diabetes (4) Hx of iron deficiency (5) History of CVA (cerebrovascular accident) (6) Severe anemia (7) Upper GI bleed (8) HTN (hypertension) Assessment and Plan Ortho status stable POD #6. Progress rehab per protocol. Continue Lovenox for DVT prophylaxis, pain management and bowel regimen. SCDs in place. Dressing change today. Discharge planning - most likely rehab center today. Cristina Saez Jun 07, 2016 07:39
[2016-06-07 08:00] VITALS: BP 150/60; PULSE 60; RESP 18; TEMP 97.9; O2SAT 95
[2016-06-07] MEDS: MAGNESIUM HYDROXIDE SUSP 30 ML CUP PO PRN (08:16)
[2016-06-07] MEDS: hydrALAZINE HCL 100 MG TAB PO SCH (08:17)
[2016-06-07] MEDS: LISINOPRIL 20 MG TAB PO SCH (08:17)
[2016-06-07] MEDS: cloNIDine HCL 0.1 MG TAB PO SCH (08:17)
[2016-06-07] MEDS: PANTOPRAZOLE SODIUM 40 MG VIAL IV PUSH SCH (08:17)
[2016-06-07] MEDS: ESCITALOPRAM OXALATE 20 MG TAB PO SCH (08:17)
[2016-06-07] MEDS: CARVEDILOL 3.125 MG TAB PO SCH (08:17)
[2016-06-07] MEDS: levETIRAcetam 500 MG TAB PO SCH (08:17)
[2016-06-07] MEDS: MULTIVITAMINS/MINERALS THERAPEUTIC TAB PO SCH (08:17)
[2016-06-07] MEDS: SODIUM CHLORIDE 0.9% FLUSH 5 ML FLUSH IVF SCH (08:23)
[2016-06-07] MEDS: ARTIFICIAL TEARS OPTH SOLN 15 ML BTL EACH EYE SCH (08:23)
[2016-06-07 11:30] VITALS: BP 128/69; PULSE 66; RESP 17; TEMP 97.8; O2SAT 95
== END 2016-06-07 12:48 | DRG 481 ==
LOC: NEPA 09:53 → NEDA 12:00 → HPAC 20:40 → N06B 06-02 15:16
PROVIDERS: ADMIT Specialist; ATTEND Specialist
PROC: 0QS704Z Reposition Left Upper Femur with Internal Fixation Device, Open Approach (ICD-10-PCS; principal; 2016-06-01 21:14)
DX: S72.142A Displaced intertrochanteric fracture of left femur, initial encounter for closed fracture (principal); K92.1 Melena; E11.65 Type 2 diabetes mellitus with hyperglycemia; I95.9 Hypotension, unspecified; J44.9 Chronic obstructive pulmonary disease, unspecified; D50.0 Iron deficiency anemia secondary to blood loss (chronic); G40.909 Epilepsy, unspecified, not intractable, without status epilepticus; I25.2 Old myocardial infarction; I10 Essential (primary) hypertension; I25.10 Atherosclerotic heart disease of native coronary artery without angina pectoris; E78.5 Hyperlipidemia, unspecified; N28.9 Disorder of kidney and ureter, unspecified; M81.0 Age-related osteoporosis without current pathological fracture; K59.00 Constipation, unspecified; M19.90 Unspecified osteoarthritis, unspecified site; F41.9 Anxiety disorder, unspecified; W19.XXXA Unspecified fall, initial encounter; Y92.129 Unspecified place in nursing home as the place of occurrence of the external cause; Z79.4 Long term (current) use of insulin; Z86.73 Personal history of transient ischemic attack (TIA), and cerebral infarction without residual deficits; Z87.891 Personal history of nicotine dependence; Z99.3 Dependence on wheelchair
CPT/HCPCS: 36430; 70450; 71010; 73502; 76000; 76937; 80048; 80053; 81001; 82272; 82948; 85014; 85018; 85025; 85027; 85610; 85730; 86850; 86900; 86901; 86920; 93005; 94150; 96361; 96374; C1713; C9113; J0690; J1580; J1650; J1815; J2270; J2405; J3010; J7030; J7050; J7120; P9016; P9612